=== PATIENT | female | born 1960 | race Caucasian/White ===

== ENCOUNTER 2017-10-20 11:17 | Outpatient (REF) | payer MEDICAID, SELFPAY ==
[2017-10-20 12:44] LABS: ALT 33 U/L (12-78); AST 19 U/L (15-37); Albumin 3.6 g/dL (3.4-5.0); Alkaline Phosphatase 109 U/L (46-116); Anion Gap 7.4 mmol/L (3-11); BUN 12 mg/dL (7-18); Bilirubin, Total 0.4 mg/dL (0.2-1.0); CO2 26.6 mmol/L (21.0-32.0); CREATININE 0.73 mg/dL (0.55-1.02); Calcium 8.6 mg/dL (8.5-10.1); Chloride 105 mmol/L (98-107); Cholesterol 233 mg/dL (50-200); Glucose 108 mg/dL (70-100); HDL Cholesterol 53 mg/dL (40-60); LDL CHOLESTEROL 160 mg/dL (<100); Potassium 4.1 mmol/L (3.5-5.1); Sodium 139 mmol/L (136-145); Total Protein 6.7 g/dL (6.4-8.2); Triglyceride 150 mg/dL (30-150)
== END 2017-10-20 11:37 ==
LOC: NCHCN 11:17
PROVIDERS: PCP Nurse Practitioner; Visit Provider Family Medicine
DX: E04.1 Nontoxic single thyroid nodule (principal); E11.9 Type 2 diabetes mellitus without complications; E66.9 Obesity, unspecified
CPT/HCPCS: 80053; 80061; 83721

== ENCOUNTER 2017-10-27 15:51 | Outpatient (REF) | payer MEDICAID, SELFPAY ==
--- NOTE | 2017-10-27 14:00 | PAPFT_PTH ---
PATIENT: Lis Millan LOC: [facility] U#:[id number] AGE/SX: 57/F ROOM: RE10/27/[address]: Jen Casillas : 1960 BED: DIS: 10/27/2017 SPEC #: [id number] RECD: 10/28/17 12:54 STATUS: CHOCO REJacquelyn #: [id number] DANGELO: 10/27/17 14:[address]: Jen Casillas DEPT: [facility] Cytology RECD BY: Mary Muñoz ENTERED: 10/28/17 12:54 SP TYPE: PAPFT OTHR DR: Leyda Wong Tissues: 1 - CX/ENDOCX FOR PAP SMEARS Procedures: PAP THIN PREP/UVM Screening HPV DNA PROBE Comments: [id number]
== END 2017-10-27 16:11 ==
LOC: NCHCN 15:51
PROVIDERS: PCP Nurse Practitioner; Visit Provider Family Medicine
DX: Z12.4 Encounter for screening for malignant neoplasm of cervix (principal); Z11.51 Encounter for screening for human papillomavirus (HPV)
CPT/HCPCS: 88142; 87624

== ENCOUNTER 2017-11-08 00:50 | Outpatient (CLI) | payer MEDICAID, SELFPAY ==
--- NOTE | 2017-11-08 16:30 | DI.MAMMO_ITS ---
SYMPTOM/DIAGNOSIS: SCREENING, Z12.31 MAMMOGRAMS: Mammograms were interpreted according to the usual protocol including computer analysis with CAD system, tomosynthesis and C view imaging. Comparison with prior examinations. Breast density B. No masses or microcalcifications are seen. There is nothing to suggest malignancy. IMPRESSION: Negative mammogram. Routine screening is recommended. Category 1 , B MQSA ASSESSMENT OF FINDINGS: Negative. Category 1. Patient will receive a letter notifying them of these results. BI-RADS category B. There are scattered areas of fibroglandular density.
== END 2017-11-08 01:10 ==
PROVIDERS: PCP Nurse Practitioner; Visit Provider Family Medicine
DX: Z12.31 Encounter for screening mammogram for malignant neoplasm of breast (principal)
CPT/HCPCS: 77063; 77067

== ENCOUNTER 2018-06-22 10:08 | Outpatient (REF) | payer MEDICAID, SELFPAY ==
[2018-06-23 10:47] LABS: Campylobacter PCR SEE COMMENTS; Salmonella PCR SEE COMMENTS; Shiga Toxin PCR SEE COMMENTS; Shigella/Enteroinvasive Ecoli SEE COMMENTS
[2018-06-24 18:28] LABS: Calprotectin <15.6 mcg/g
== END 2018-06-22 10:28 ==
LOC: LBN 10:08
PROVIDERS: PCP Nurse Practitioner; Visit Provider Nurse Practitioner Family
DX: R19.7 Diarrhea, unspecified (principal)
CPT/HCPCS: 87505; 83993; 87324

== ENCOUNTER 2018-10-26 10:18 | Outpatient (CLI) | payer MEDICAID, SELFPAY ==
[2018-10-26 11:09] LABS: HCT 44.4 % (36.0-46.0); HGB 14.8 g/dL (12.0-15.5); Mean Corp. HGB Concentration 33.3 g/dL (32.0-36.0); Mean Corpuscular Hemoglobin 28.1 pg (27.0-33.0); Mean Corpuscular Volume 84.3 fL (80-95); Platelet Count 349 x1000/uL (130-400); RBC 5.27 m/cumm (4.00-5.20); White Blood Cell Count 6.68 k/cumm (4.4-10.8)
[2018-10-26 12:11] LABS: ALT 40 U/L (14-59); AST 15 U/L (15-37); Albumin 3.9 g/dL (3.4-5.0); Alkaline Phosphatase 99 U/L (46-116); BUN 15 mg/dL (7-18); Bilirubin, Total 0.5 mg/dL (0.2-1.0); CREATININE 0.67 mg/dL (0.55-1.02); Calcium 9.4 mg/dL (8.5-10.1); Chloride 104 mmol/L (98-107); Glucose 131 mg/dL (70-100); Potassium 4.1 mmol/L (3.5-5.1); Sodium 140 mmol/L (136-145); Total Protein 7.1 g/dL (6.4-8.2)
== END 2018-10-26 10:38 ==
PROVIDERS: PCP Family Medicine; Visit Provider Family Medicine
DX: R10.9 Unspecified abdominal pain (principal)
CPT/HCPCS: 36415; 80053; 85027

== ENCOUNTER 2018-11-28 11:51 | Outpatient (CLI) | payer MEDICAID, SELFPAY ==
--- NOTE | 2018-11-28 08:36 | DI.RAD_ITS ---
EXAM: XR KNEE RT 2V AP,LAT INDICATION: right knee pain. COMPARISON: LEFT KNEE 3 VIEW COMPLETE from 04/14/2011 TECHNIQUE: 2D digital imaging was performed. FINDINGS: Two views were obtained. There is marked narrowing of medial tibiofemoral cartilaginous joint space with subchondral sclerosis of the adjacent bones. Prominent hypertrophic spurring at the joint iban ns noted involving all 3 joints of the knee. IMPRESSION: Severe DJD predominantly involving medial tibiofemoral joint.
--- NOTE | 2018-11-28 08:36 | DI.RAD_ITS ---
EXAM: XR KNEE LT 2V AP,LAT INDICATION: left knee pain. COMPARISON: XR KNEE RT 2V AP,LAT from 11/28/2018 TECHNIQUE: 2D digital imaging was performed. FINDINGS: Two views were obtained. There is marked narrowing of the medial tibiofemoral cartilaginous joint sp yuniel. Very prominent hypertrophic spurring at the joint margins noted particularly at the medial tibi ofemoral joint and the patellofemoral joint. Mild subchondral sclerosis of adjacent bones noted at t he medial tibiofemoral joint. IMPRESSION: Severe DJD predominantly involving medial tibiofemoral joint.
--- NOTE | 2018-11-28 08:36 | DI.RAD_ITS ---
EXAM: XR STANDING ALIGNMENT INDICATION: alignment eval with knee pain. COMPARISON: No exams were available for comparison TECHNIQUE: 2D digital imaging was performed. FINDINGS: AP views of both lower extremities were obtained for leg length determination. Mild DJD of the SI lupillo ints and hips noted bilaterally. Severe DJD of the knees predominantly involving medial tibiofemoral joints noted. IMPRESSION:
== END 2018-11-28 12:11 ==
PROVIDERS: PCP Family Medicine; Visit Provider Student in an Organized Health Care Education/Training Program
DX: M25.562 Pain in left knee (principal); M17.0 Bilateral primary osteoarthritis of knee; M25.561 Pain in right knee; M16.0 Bilateral primary osteoarthritis of hip; M53.3 Sacrococcygeal disorders, not elsewhere classified
CPT/HCPCS: 73560; 77073

== ENCOUNTER 2018-12-09 06:07 | Outpatient (CLI) | payer MEDICAID, SELFPAY ==
--- NOTE | 2018-12-09 08:15 | DI.RAD_ITS ---
EXAM: XR CHEST 2V PA LATERAL XR CHEST 2V PA LATERAL CLINICAL HISTORY: COUGH, NON PREDUCTIVE R05 COUGH, NON PREDUCTIVE R05 TECHNIQUE: 2D digital imaging was performed. COMPARISON: CHEST 2 VIEWS PA,LAT from 12/17/2009 FINDINGS: The heart is not enlarged. The lungs are clear and well expanded. No pleural effusion seen. Mediastin al contours appear intact. IMPRESSION: Normal chest
== END 2018-12-09 06:27 ==
PROVIDERS: PCP Family Medicine; Visit Provider Family Medicine
DX: R05 Cough (principal)
CPT/HCPCS: 71046

== ENCOUNTER 2018-12-29 12:48 | Outpatient (CLI) | payer MEDICAID, SELFPAY ==
[2018-12-29 15:16] LABS: HCT 45.3 % (36.0-46.0); HGB 15.2 g/dL (12.0-15.5); Mean Corp. HGB Concentration 33.6 g/dL (32.0-36.0); Mean Corpuscular Hemoglobin 28.2 pg (27.0-33.0); Mean Platelet Volume 9.8 fL (8.0-11.0); Platelet Count 354 x1000/uL (130-400); RBC 5.39 m/cumm (4.00-5.20); RBC Distribution Width 12.9 % (11.7-14.6); White Blood Cell Count 7.06 k/cumm (4.4-10.8)
[2018-12-29 16:05] LABS: Anion Gap 9.8 mmol/L (3-11); BUN 14 mg/dL (7-18); CO2 29.2 mmol/L (21.0-32.0); CREATININE 0.68 mg/dL (0.55-1.02); Calcium 9.4 mg/dL (8.5-10.1); Chloride 103 mmol/L (98-107); Glucose 98 mg/dL (70-100); Potassium 3.8 mmol/L (3.5-5.1); Sodium 142 mmol/L (136-145)
--- NOTE | 2018-12-29 19:10 | W.PREOPHP ---
Date of service: 12/29/18 Assessment and Plan Assessment and plan (1) Osteoarthritis of knee: Status: Chronic Assessment and plan: Bilateral total knee replacements. Details of surgery were discussed with patient as well as risks and pertinent anatomy. All questions were answered. Qualifiers: Osteoarthritis type: primary Laterality: bilateral Qualified Code(s): M17.0 - Bilateral primary osteoarthritis of knee History of Present Illness History of Present Illness Chief Complaint: Bilateral knee pain Narrative: Lis is a 58-year-old female who comes in today for preop history and physical for bilateral knee replacements. She states that she has had this knee pain for several years, but has not sought much for treatment for this. A few years ago she did have a trial of Synvisc injections which she states did not provide any relief, and in fact her left knee had a reaction with severe swelling redness. She ultimately had to have that knee drained in the emergency room. Since then she only uses acetaminophen as needed for her knee pain which she says helped slightly. She works on her feet all day in a bakery, and would like to get some relief from her symptoms. She has significant difficulty ambulating stairs, but she says that she gets the most pain with walking on uneven ground. Recently she had to help with a moving process, and was walking on uneven ground quite a bit during the day. X-rays taken in the office show severe arthritis with even some loose bodies in the knee. After long discussion, it was decided that she would benefit from total knee replacements. Dr. Mcdaniel does offer bilateral knee replacements done the same day, and patient agrees with this plan and is anxious to proceed. Pertinent Surgical Information Patient denies history of hypertension, CVA, [place], angina, asthma, COPD, renal or liver disorders, hepatitis, bleeding disorders, diabetes, immune or thyroid disorders. No complications from anesthesia. Review of Systems Constitutional Constitutional: Denies fever(s) ENT Ears, Nose, Mouth, and Throat: Denies dizziness and Denies sore throat Cardiovascular Cardiovascular: Denies chest pain, Denies palpitations and Denies dyspnea Respiratory Respiratory: Denies cough and Denies dyspnea Gastrointestinal Gastrointestinal: Denies abdominal pain, Denies melena, Denies hematochezia, Denies diarrhea, Denies nausea and Denies vomiting Genitourinary Genitourinary: Denies hematuria and Denies dysuria Neurologic Neurologic: Denies dizziness Endocrine Endocrine: Denies palpitations PFSH Medical History Multiple thyroid nodules (Acute) Surgical History History of gynecologic surgery (Acute) Following childbirth. Hx of cholecystectomy (Chronic) Hx of colonoscopy (Chronic) S/P fine needle biopsy (Acute) Per pt fine needle biopsy for throat nodules. Social History Smoking/Tobacco Use Status: Former Tobacco Use Drug use: Never Current gender identity: female Meds Home Medications and Allergies Home Medications Medication Instructions Recorded Confirmed Type albuterol sulfate [Ventolin HFA] 2 puff INHALATION DIRECTED PRN 11/30/12 12/29/18 History Allergies Allergy/AdvReac Type Severity Reaction Status Date / Time dog dander Allergy Wheezing Verified 12/29/18 13:21 hydrocodone AdvReac Intermediate STOMACH Verified 12/29/18 14:13 PAIN, VOMITING monosodium glutamate AdvReac Intermediate Other (See Verified 12/29/18 13:22 Comment) aspirin AdvReac Mild Nausea Unverified 12/29/18 14:30 Exam HENMT Head: normocephalic and atraumatic General nose exam: no nasal discharge Throat: uvula midline and no uvular edema Other: soft palate rises symmetrically, no erythema Eyes Conjunctivae: conjunctivae normal Sclera: sclerae normal Pupils: PERRL Resp Effort & Inspection: normal respiratory effort Auscultation: clear to auscultation bilaterally and no wheezes Cardio Rate: regular rate Rhythm: regular rhythm Heart Sounds: S1 normal, S2 normal and no murmurs GI Palpation: soft, no hepatosplenomegaly and nontender Auscultation: normal bowel sounds Results Labs Result diagrams: 12/29/18 15:10 12/29/18 15:10 Labs: Laboratory Results - last 24 hr 12/29/18 12/29/18 15:10 15:10 WBC 7.06 RBC 5.39 H Hgb 15.2 Hct 45.3 MCV 84.0 MCH 28.2 MCHC 33.6 RDW 12.9 Plt Count 354 MPV 9.8 Sodium 142 Potassium 3.8 Chloride 103 Carbon Dioxide 29.2 Anion Gap 9.8 BUN 14 Creatinine 0.68 Estimated GFR/1.73 m2 >= 60.00 Glucose 98 Calcium 9.4
== END 2018-12-29 13:08 ==
PROVIDERS: PCP Family Medicine; Visit Provider Student in an Organized Health Care Education/Training Program
DX: M17.11 Unilateral primary osteoarthritis, right knee (principal); M17.12 Unilateral primary osteoarthritis, left knee; J44.9 Chronic obstructive pulmonary disease, unspecified; Z01.812 Encounter for preprocedural laboratory examination
CPT/HCPCS: 80048; 85027; 86850; 86900; 86901; NC

== ENCOUNTER 2019-01-03 05:50 | Inpatient (IN) | payer MEDICAID, SELFPAY ==
[2018-12-29 12:51] VITALS: BP 160/90; PULSE 86; RESP 17; TEMP 36.6; O2SAT 99
[2019-01-03] VITALS (17 sets, daily range): BP systolic 76–130; BP diastolic 31–78; PULSE 60–88; RESP 15–23; TEMP 36.1–37.4; O2SAT 91–99
[2019-01-03] MEDS: Acetaminophen 500 MG TAB 1000 MG PO ×3 (06:34→19:16)
[2019-01-03] MEDS: Celecoxib 200 MG CAP 400 MG PO (06:34)
[2019-01-03] MEDS: Gabapentin 300 MG CAP PO ×2 (06:34→21:19)
[2019-01-03] MEDS: Lactated Ringers 1,000 ML 80 ML IV ×3 (06:40→12:26)
[2019-01-03] MEDS: Midazolam 2 MG/2 ML VIAL (07:25)
[2019-01-03] MEDS: Bupivacaine 0.25% Pres-Free 30 ML VIAL ×2 (07:25→10:30)
[2019-01-03] MEDS: ceFAZolin 2 GM/50 ML BAG IVPB (07:50)
[2019-01-03] MEDS: Normal Saline 20 ML VIAL (10:30)
[2019-01-03] MEDS: Ketorolac 30 MG/ML VIAL (10:30)
--- NOTE | 2019-01-03 13:47 | PT.INIE ---
Date of service: 01/03/19 Time of Service: 13:47 PT Notes Physical Therapy Inpatient Initial Evaluation Date: 01/03/2019 Referring Doctor: PT Orders: PT CONSULT: S/P B TKA Precautions: Fall. Standard. WBAT on B LE. Patient Profile/Admitting Diagnosis: Patient is seen she is a 58-year-old female patient with bilateral knee osteoarthritis S/P bilateral total knee arthroplasty on POD 0. PMHX: Medical History Multiple thyroid nodules (Acute) Surgical History History of gynecologic surgery (Acute) Following childbirth Hx of cholecystectomy (Chronic) Hx of colonoscopy (Chronic) S/P fine needle biopsy (Acute) Per pt fine needle biopsy for throat nodules. Social History/Home Situation: Lives with in a log cabin with 1 step to enter with rail on the R going up. I with all aspects of ADLs prior to surgery. [place]. Equipment Owned/DME: None. Subjective: Patient reports mild tenderness on her L knee with movement. She states her feet are still a little numb. She denies dizziness, headache, chest pain throughout PT evaluation. She did not report any instability during ambulation activity. She said she can feel her knee snap on both sides when she did the bilateral quadriceps setting in supine, there was no pain associated with the snapping. Objective: General Observation: Patient seen rsing in bed. Bilateral cryocuffs on B knees. TAMIR wraps to B knees. Patient does not appear to be in distress. present during PT evaluation. Mental Status: Alert and oriented x4 Pain: 1/10 pain on left knee with movement Vital Signs: WNL at time of evaluation ROM: Right Upper Extremity: Shoulder Flexion WFL. Shoulder abduction WFL. Elbow flexion WFL. Wrist flexion WFL. Opening and closing of hand WFL. Left Upper Extremity: Shoulder Flexion WFL. Shoulder abduction WFL. Elbow flexion WFL. Wrist flexion WFL. Opening and closing of hand WFL. Right Lower Extremity: Hip flexion WFL. Hip abduction WFL. Knee flexion 0-90 degrees with active ROM limited by TAMIR wraps. Knee extension -18 degrees. Ankle dorsiflexion WFL. Ankle plantarflexion WFL. Left Lower Extremity: Hip flexion WFL. Hip abduction WFL. Knee flexion WFL 0-100 degrees with active ROM limited by TAMIR wraps. Knee extension -21 degrees. Ankle dorsiflexion WFL. Ankle plantarflexion WFL. Strength: Right Upper Extremity: Shoulder flexors 5/5. Shoulder abductors 5/5. Elbow flexors 5/5. Elbow extensors 5/5. Edger Machine Helper strong. Left Upper Extremity: Shoulder flexors 5/5. Shoulder abductors 5/5. Elbow flexors 5/5. Elbow extensors 5/5. Edger Machine Helper strong. Right Lower Extremity: Hip flexors 4/5. Hip abductors 4/5. Knee flexors 3-/5. Knee extensors 3-/5. Ankle dorsiflexors 5/5. Ankle plantarflexors 5/5. Left Lower Extremity:Hip flexors 4/5. Hip abductors 4/5. Knee flexors 3-/5. Knee extensors 3-/5. Ankle dorsiflexors 5/5. Ankle plantarflexors 5/5. Sensation: Diminished on B feet as to pain and pressure on bilateral lower extremities due to post-anesthesia effect. This is Bed Mobility/Transfers: Rolling SBA Supine to sit SBA Sit to supine SBA Sit to stand minimal assist Stand to sit CGA Bed to chair CGA Chair to bed CGA Gait: Patient was able to tolerate 10 feet forward and 10 feet backward of in-room ambulation using FWW with CGA of 2 showing slowed adri, decreased step height/length without complaints of dizziness, headache, nor nausea. Patient did not report any instability on B knees during activity. B LE in good alignment during walking. Balance: Static Sitting: Normal Dynamic Sitting: Normal Static Standing: Fair Dynamic Standing: Fair Special Tests: Mobility Limitations Standardized Measure [facility] AM-PAC 6 clicks Basic Mobility Inpatient Short Form: Raw Score: 18 CMS Score: 47 % deficit Informed Consent/Education: Patient instructed in purpose of PT consult and plan of care. Patient was also instructed about doing ankle pumps, gluteal setting, and quadriceps setting to be done every hour for 10 reps. Assessment: Patient is seen she is a 58-year-old female patient with bilateral knee osteoarthritis S/P bilateral total knee arthroplasty on POD 0. 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 She has a good prognosis for regaining prior level of function. is a very good support for her. Felisa is alos motivated to return to her prior mobility level. Patient presents with clinical signs and symptoms consistent with current/admitting diagnoses that have resulted to mobility limitations, gait instability, generalized weakness, and impairment of motor control as demonstrated by the following impairment level findings: 1. Decreased strength to knee major muscle groups 2. Impaired standing balance 3. Impaired activity tolerance 4. Limitation of joint range of motion in B knees Impairments are contributing to the following functional limitations: 1. Dependent bed mobility skills 2. Increased dependence with transfers 3. Inability to safely ambulate without assistive device and physical assistance 4. Increase completion time for mobility ADL performance 5. Increased fall risk 6. Inability to negotiate steps alone safely Patient is assessed as a 74225 moderate complexity based on the following: History: Patient is a 58-year-old female with past medical history as listed above with bilateral knee osteoarthritis S/P bilateral total knee arthroplasty on POD 0. Examination: Demonstrable impairment in strength, balance, and range of motion with underlying impairments and functional limitations as documented above Presentation:Evolving Decision Makin moderate complexity Goals: Goals X1 week 1. Supine-Sit independent 2. Sit-Supine independent 3. Sit-Stand independent 4. Stand-Sit independent 5. Bed-Chair independent 6. Chair-Bed independent 7. Independent gait on level surface with use of least restrictive device for at least 300 feet without report of pain nor dyspnea 8. Independent stair negotiation while holding onto bilateral rails for at least 3 steps without report of pain nor dyspnea 9. Independent with home exercise program 10. Good static and dynamic standing balance/tolerance Plan of Care/Treatment Plan: 1-2x/day, 7 days/week x 1 week. Plan of care has been reviewed with the [employer]GER providing the service under Physical Therapy direction. Initiate Physical Therapy intervention for strengthening, bed mobility, transfers, gait, stairs, balance training, use of assistive device. DISCHARGE RECOMMENDATIONS: May benefit from skilled physical therapy services according to orthopedic surgeon's timeline recommendations. Patient will be educated and trained on home exercise program per TKA exercise protocol in preparation for outpatient physical therapy services. TREATMENT CODE/TIME: 83829 X 37 minutes beginning at 13:47 pm. Thank you very much for this referral. Evon Pal PT, DPT, CLT [facility]
[2019-01-03] MEDS: ceFAZolin 1 GM/50 ML BAG IVPB ×2 (14:34→21:18)
--- NOTE | 2019-01-03 14:48 | NUR.NOTE ---
Nursing Note: 1241: pt arrives to room 206 via her own bed from pacu. pt alert/oriented x 3, patent IV with LR @ 80 cc/hr, pt +pp's bilaterally, cryo cuff in place x 2, oriented to call pierce and tv. continue to monitor.
[2019-01-03] MEDS: oxyCODONE 5 MG TAB PO ×3 (16:04→23:00)
[2019-01-03] MEDS: Celecoxib 200 MG CAP PO (19:16)
[2019-01-03] MEDS: Rivaroxaban 10 MG TABLET PO (19:16)
--- NOTE | 2019-01-03 22:05 | ROE_ITS ---
Date of service: 01/03/19 Time of Service: 11:05 Operative Note Operative Note DATE OF PROCEDURE: 01/03/19 PRE-OP DIAGNOSIS: Bilateral Knee Osteoarthritis POST-OP DIAGNOSIS: same PROCEDURE: Bilateral Total Knee Replacement SURGEON: Jacek Castanon BULL GANG WORKER: Ashwin Sneed ANESTHESIA: regional and spinal ESTIMATED BLOOD LOSS: 200 PATHOLOGY: none sent TOURNIQUET TIME: 30 COMPLICATIONS: None Patient was transported to: PACU Patient's condition: stable Implants: RIGHT 1. Depuy Attune Posterior Stabilized Femoral Component, Size 4 2. Depuy Attune Fixed Platform Tibial Component, Size 3 3. Depuy Attune 4x5mm Fixed, Stabilized Poly 4. Depuy Attune Patellar Component, Size 35mm LEFT 1. Depuy Attune Posterior Stabilized Femoral Component, Size 5 Narrow 2. Depuy Attune Fixed Platform Tibial Component, Size 3 3. Depuy Attune 5x7mm Fixed, Stabilized Poly 4. Depuy Attune Patellar Component, Size 32mm Indications: I have seen Lis in clinic for symptoms of bilateral knee arthritis, confirmed with radiographic findings. Lis has exhausted nonoperative methods and was having significant limitations in daily function and desired better function and less pain. I discussed the technical details of a knee replacement. I explained the risks of the procedure to include, but not limited to, bleeding, infection, pain, stiffness, fracture, damage to nerves and vessels, damage to muscles and tendons, loosening, need for repeat procedure, blood clot and cardiopulmonary demise. Despite these risks, Lis elected to proceed. Findings: There was significant signs of arthritis throughout the knee. Procedure Description: Lis was greeted in the preoperative holding area where the correct side was identified and marked. The consent was reviewed with the patient and signed. The history and physical was updated. All questions were answered. Preoperative mediacations were administered: Acetaminophen 1000mg, Celebrex 400mg, and Gabapentin 300mg. An adductor canal block was then administered by the anesthesia team in the PACU to both knees. Lis was taken back to the operating room. A spinal anesthestic was then administered. The patient was placed into the supine position on the operating room table. A nonsterile tourniquet was placed high onto the leg but only used for cementing. Posts were placed for positioning d uring the procedure. All bony prominences were well padded. Prophylactic antibiotics in the form of Cefazolin were administered. 1g of Tranxemic Acid was given intravenously within 30 minutes of incision. Both legs were then prepped with Chloraprep and draped in a standard fashion with impervious stockinette and a bilateral knee drape. A second prep with Chloraprep was performed prior to application of Iodine impregnated skin protection on the right knee. A timeout to confirm correct identity, side and site, procedure, allergies, anesthesia, and medical concerns was performed. RIGHT KNEE With the knee in some flexion, a midline incision was made overlying the knee. Full thickness skin flaps were raised once the extensor mechanism was encountered. These were raised medially and laterally. Any bleeding was controlled with electrocautery. Once the extensor mechanism was fully exposed, a medial parapatellar arthrotomy was performed in a flexed position. All bleeding from the arthrotomy and the geniculate arteries was coagulated. A medial subperiosteal peel was performed with electrocautery to the midcoronal plane. Due to the significant varus d eformity the entire medial tibial plateau was exposed. The fat pad was removed while keeping the patellar tendon protected. The anterior distal femur synovium was removed for later visualization. The ACL and PCL were resected and the anterior horn of the lateral meniscus was transected. The knee was then flexed with the patella everted. Large osteophytes from the tibia were removed. Large osteophytes from the femur were removed. Using a step drill, and based on preoperative templating, the femoral canal was entered. This was done with a step drill without any difficulty. The intrame dullary distal femoral cut guide was inserted, set to a 5 degree valgus cut and 9mm cut thickness. There was some hypoplasia of the lateral femoral condyle and any remnant cartilage of the medial femoral condyle was removed for appropriate thickness. The distal femoral cut guide was then held in position and pinned. With the soft tissues protected, the distal cut was performed. This was passed over a few times to ensure a planar cut. I then turned attention to the tibia. The extramedullary guide was placed onto the leg. The distal aspect was slid medial to adjust for position of center of ankle and stay in line with shaft of the tibia. Approximately 3-5 degrees of posterior slope was kept in the proximal cutting guide. The center of the guide was aligned with the PCL. The stylus was used to assess cut thickness. The medial side, most involved side, was set for a 4mm cut. This was then held in position and pinned into place with 2 additional pins and a cross pin for stability. The medial and lateral collateral ligaments were protected and the cut was performed. With this completed, it was assessed and noted to be of appropriate dimensions. The guide was removed. A spacer block was inserted and the knee was brought into extension. The 5mm spacer block provided full extension, without hyperextension and with stability of both the medial and lateral collateral ligaments was assessed. The pins from the femur and the tibia were then removed. The distal femur was then sized. The anterior stylus was placed onto the lateral ridge of the anterior femur. This indicated a size 4 femur. The external rotation of the guide was adjusted to 3 degrees to match the epicondylar axis, perpendicular to [place]?s line. The 4-in-1 cutting guide was the placed. The posterior medial femur cut was evaluated and appeared of good thickness. The spacer block was inserted underneath the cutting guide and stability was confirmed in 90 degrees of flexion. An jena wing was used to confirm appropriate position of the anterior cut to avoid notching. This cutting guide was ensured to be flush on the cut surface and then pinned into place with headed pins. While protecting the soft tissues, quad tendon, and collateral ligaments, the anterior and posterior cuts were performed with a saw. The central two pins were removed and the posterior and anterior chamfers were cut next. The notch-cutting guide was placed. This was pinned to lateralize the femoral component as much as possible while keeping it flush on the cut surface. This was then pinned into position. A reciprocating saw was used to make the notch cut. A rasp smoothed the cut surfaces. A trial posterior stabilized femoral component was then inserted, impacted down to the cut surfaces, and the lug holes were drilled. A provisional trial tibial component was placed and the knee was brought through range of motion. There was noted to be excellent extension and flexion. There was no significant instability. The patella was tracking without thumbs. The tibial cut surface was fully exposed. The medial and lateral menisci were removed. The tibia was then sized as a 3. The tibia had been previously marked during trialing to correspond to the center of the tibial component to help with rotation. The trial was aligned to this ashwin, approximately rotated to the medial 1/3rd of the tibial tubercle. The trial was pinned into place. The tibia was prepared with a reamer and a keel punch. The knee was then brought into extension and the patella was measured as 25mm. Using the patellar clamp and cut guide, this was resected to a flat surface with at least 13mm of thickness remaining. The size 35 patella fit the best. This was oriented and then clamped into position. The lugs were drilled. The trial components were removed. The final components, except for the polyethylene were opened on the back table. The periosteal and capsular tissues, especially posteriorly, around the knee were then systematically injected with a periarticular cocktail consisting of 50cc 0.25% Marcaine, 30mg Ketorolac, 20cc of Exparal and 50cc of injectable saline. The tourniquet was t hen inflated to 275mmHg. The knee was thoroughly irrigated with a pulse lavage and dried. On the back table, with the implants opened, the cement was mixed. 2 batches of antibiotic laden cement were prepared with vacuum assistance. After the cement was ready a small amount was placed on to the back side of the tibial component at the keel. A small amount was placed onto the posterior flange of the femur. Cement was manual pressurized and impregnated into the cut surface of the tibia. The tibial component was then inserted into the cut surface and impacted into position. Excess cement was removed and the component was reimpacted. Again, excess cement was removed and our attention was then turned to the femur. The femoral cut surface was once again dried and cement was manually impacted into the cut surface. The femoral component was lined with the lug holes and impacted. Excess cement was removed. It was ensured to be down against the cut surface. The trial polyethylene was then inserted and the leg was brought out into full extension for the duration of the cement curing process, approximately 15min. Cement was lastly manually impacted into the cut surface of the patella and the patellar button was clamped into position and held. During this process attention was turned to the gutters of the knee and for all interfaces for any excess cement. While the cement was hardening, the knee was irrigated with Irrisept chlorhexadine solution. This was allowed to sit in the knee for 3 minutes. After the cement had finally cured, approximately 15min, the clamp was removed from the patella and the knee was taken through range of motion. A size 5mm polyethylene component provided the best range of motion and stability with less than 2mm gapping with medial and lateral stress and full extension without significant hyperextension. The patella was tracking with a no-thumbs technique. The trial poly was removed and once again the knee was checked for any loose, excess, or errant cement. The poly component was then inserted and impacted into position after cleaning and drying the tibial tray. The capsule was then reapproximated with a No. 1 Vicryl at multiple locations. The capsule was finally closed with a No. 2 Stratafix, barbed suture. The tourniquet was then released and the arthrotomy appeared watertight without significant bleeding. The second dosing of 1g TXA was started. While Ashwin Sneed PA-C was closing the right knee under my guidance, the left knee was prepared. Deep tissues were then reapproximated with 0 Vicryl and 2-0 Vicryl. The skin was closed with a running 3-0 Monocryl in a subcuticular fashion. This was reinforced with skin glue. Left Knee Once the extensor mechanism was fully exposed, a medial parapatellar arthrotomy was performed in a flexed position. All bleeding from the arthrotomy and the geniculate arteries was coagulated. A medial subperiosteal peel was performed with electrocautery to the midcoronal plane. Due to the significant varus deformity the entire medial tibial plateau was exposed. The fat pad was removed while keeping the patellar tendon protected. The anterior distal femur synovium was removed for later visualization. The ACL and PCL were resected and the anterior horn of the lateral meniscus was transected. The knee was then flexed with the patella everted. Large osteophytes from the tibia were removed. Large osteophytes from the femur were removed. Using a step drill, and based on preoperative templating, the femoral canal was entered. This was done with a step drill without any difficulty. The intramedullary distal femoral cut guide was inserted, set to a 5 degree valgus cut and 10mm cut thickness. There was some hypoplasia of the lateral femoral condyle and any remnant cartilage of the medial femoral condyle was removed for appropriate thickness. The distal femoral cut guide was then held in position and pinned. With the soft tissues protected, the distal cut was performed. This was passed over a few times to ensure a planar cut. I then turned attention to the tibia. The extramedullary guide was placed onto the leg. The distal aspect was slid medial to adjust for position of center of ankle and stay in line with shaft of the tibia. Approximately 3-5 degrees of posterior slope was kept in the proxi mal cutting guide. The center of the guide was aligned with the PCL. The stylus was used to assess cut thickness. The medial side, most involved side, was set for a 4mm cut. This was then held in position and pinned into place with 2 additional pins and a cross pin for stability. The medial and lateral collateral ligaments were protected and the cut was performed. With this completed, it was assessed and noted to be of appropriate dimensions. The guide was removed. A spacer block was inserted and the knee was brought into extension. The 5mm spacer block provided full extension, without hyperextension and with stability of both the medial and lateral collateral ligaments was assessed. The pins from the femur and the tibia were then removed. The distal femur was then sized. The anterior stylus was placed onto the lateral ridge of the anterior femur. This indicated a size 5 narrow femur. The external rotation of the guide was adjusted to 3 degrees to match the epicondylar axis, perpendicular to [place]?s line. The 4-in-1 cutting guide was the placed. The posterior medial femur cut was evaluated and appeared of good thickness. The spacer block was inserted underneath the cutting guide and stability was confirmed in 90 degrees of flexion. An jena wing was used to confirm appropriate position of the anterior cut to avoid notching. This cutting guide was ensured to be flush on the cut surface and then pinned into place with headed pins. While protecting the soft tissues, quad tendon, and collateral ligaments, the anterior and posterior cuts were performed with a saw. The central two pins were removed and the posterior and anterior chamfers were cut next. The notch-cutting guide was placed. This was pinned to lateralize the femoral component as much as possible while keeping it flush on the cut surface. This was then pinned into position. A reciprocating saw was used to make the notch cut. A rasp smoothed the cut surfaces. A trial posterior stabilized femoral component was then inserted, impacted down to the cut surfaces, and the lug holes were drilled. A provisional trial tibial component was placed and the knee was brought through range of motion. There was noted to be excellent extension and flexion. There was no significant instability. The patella was tracking without thumbs. The tibial cut surface was fully exposed. The medial and lateral menisci were removed. The tibia was then sized as a 3. The tibia had been previously marked during trialing to correspond to the center of the tibial component to help with rotation. The trial was aligned to this ashwin, approximately rotated to the medial 1/3rd of the tibial tubercle. The trial was pinned into place. The tibia was prepared with a reamer and a keel punch. The knee was then brought into extension and the patella was measured as 25mm. Using the patellar clamp and cut guide, this was resected to a flat surface with at least 13mm of thickness remaining. The size 35 patella fit the best. This was oriented and then clamped into position. The lugs were drilled. The trial components were removed. The final components, except for the polyethylene were opened on the back table. The periosteal and capsular tissues, especially posteriorly, around the knee were then systematically injected with 1/2 of the periarticular cocktail consisting of 50cc 0.25% Marcaine, 30mg Ketorolac, 20cc of Exparal and 50cc of injectable saline. The tourniquet was then inflated to 275mmHg. The knee was thoroughly irrigated with a pulse lavage and dried. On the back table, with the implants opened, the cement was mixed. 2 batches of antibiotic laden cement were prepared with vacuum assistance. After the cement was ready a small amount was placed on to the back side of the tibial component at the keel. A small amount was placed onto the posterior flange of the femur. Cement was manual pressurized and impregnated into the cut surface of the tibia. The tibial component was then inserted into the cut surface and impacted into position. Excess cement was removed and the component was reimpacted. Again, excess cement was removed and our attention was then turned to the femur. The femoral cut surface was once again dried and cement was manually impacted into the cut surface. The femoral component was lined with the lug holes and impacted. Excess cement was removed. It was ensured to be down against the cut surface. The trial polyethylene was then inserted and the leg was brought out into full extension for the duration of the cement curing process, approximately 15min. Cement was lastly manually impacted into the cut surface of the patella and the patellar button was clamped into position and held. During this process attention was turned to the gutters of the knee and for all interfaces for any excess cement. While the cement was hardening, the knee was irrigated with Irrisept chlorhexadine solution. This was allowed to sit in the knee for 3 minutes. After the cement had finally cured, approximately 15min, the clamp was removed from the patella and the knee was taken through range of motion. A size 7mm polyethylene component provided the best range of motion and stability with less than 2mm gapping with medial and lateral stress and full extension without significant hyperextension. The patella was tracking with a no-thumbs technique. The trial poly was removed and once again the knee was checked for any loose, excess, or errant cement. The poly component was then inserted and impacted into position after cleaning and drying the tibial tray. The capsule was then reapproximated with a No. 1 Vicryl at multiple locations. The capsule was finally closed with a No. 2 Stratafix, barbed suture. The tourniquet was then released and the arthrotomy appeared watertight without significant bleeding. The second dosing of 1g TXA was started. While Ashwin Sneed PA-C was closing the right knee under my guidance, the left knee was prepared. Deep tissues were then reapproximated with 0 Vicryl and 2-0 Vicryl. The skin was closed with a running 3-0 Monocryl in a subcuticular fashion. This was reinforced with skin glue. A Mepilex silver dressing was applied along with a [id number] TAMIR wrap to both knees. A CryoCuff was applied. Lis was transferred to the hospital bed without difficulty an suffering no apparent complication. Lis has a good prognosis. Physical therapy will start today and without restrictions, weight-bearing as tolerated. Rivaroxaban 10mg daily for blood clot prevention.
[2019-01-04] MEDS: Lactated Ringers 1,000 ML 80 ML IV ×2 (00:39→14:04)
[2019-01-04] MEDS: oxyCODONE 5 MG TAB PO ×6 (03:21→23:34)
[2019-01-04 04:28] VITALS: BP 118/82; PULSE 77; RESP 18; TEMP 36.2; O2SAT 93
[2019-01-04] MEDS: ceFAZolin 1 GM/50 ML BAG IVPB (05:44)
[2019-01-04 07:00] LABS: HGB 11.4 g/dL (12.0-15.5); Mean Corp. HGB Concentration 32.6 g/dL (32.0-36.0); Mean Corpuscular Hemoglobin 27.9 pg (27.0-33.0); Mean Corpuscular Volume 85.6 fL (80-95); Mean Platelet Volume 10.4 fL (8.0-11.0); Platelet Count 263 x1000/uL (130-400); RBC 4.09 m/cumm (4.00-5.20); RBC Distribution Width 12.8 % (11.7-14.6); White Blood Cell Count 7.12 k/cumm (4.4-10.8)
[2019-01-04 07:10] VITALS: BP 117/70; PULSE 78; RESP 17; TEMP 36.7; O2SAT 96
[2019-01-04 07:19] LABS: Anion Gap 6.7 mmol/L (3-11); BUN 10 mg/dL (7-18); CO2 26.3 mmol/L (21.0-32.0); CREATININE 0.76 mg/dL (0.55-1.02); Chloride 103 mmol/L (98-107); Glucose 224 mg/dL (74-106); Potassium 3.9 mmol/L (3.5-5.1); Sodium 136 mmol/L (136-145)
[2019-01-04] MEDS: Celecoxib 200 MG CAP PO ×2 (07:33→20:03)
[2019-01-04] MEDS: Acetaminophen 500 MG TAB 1000 MG PO ×3 (07:34→20:02)
[2019-01-04] MEDS: Dexamethasone 4 MG TAB PO (07:35)
[2019-01-04] MEDS: Pantoprazole 40 MG TABCR PO (07:35)
--- NOTE | 2019-01-04 09:33 | NUR.NOTE ---
Nursing Note: 0900. pt working with PT and became dizzy, diaphoretic and nauseous. Pt's VS within normal limits. Patient sat in her recliner and her symptoms subsided over a few minutes
--- NOTE | 2019-01-04 09:38 | INITIAL_ITS ---
Care Management Initial Assess REASON FOR HOSPITALIZATION:: Bilateral Knee OA PAST MEDICAL HISTORY/PAST SURGICAL HISTORY:: Multiple thyroid nodules, gynecologic sugery following childbirth, cholecystectomy, colonoscopy, fine needle biopsy PREVIOUS FUNCTIONAL STATUS/SOCIAL/FAMILY SUPPORTS:: Lis resides with her , Luis in a log cabin in [place], [place]. 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 Luis and Lis have plans to go south in [place] of [place]. CURRENT FUNCTIONAL STATUS:: Lis is sitting up in her chair, she engages well with this technical publications writer and is forthcoming with information. Lis reports that she was working well with PT and had been up multiple times, she states after receiving a new oral medication she became dizzy and nauseous. She reports anticipating staying another night and discharging home tomorrow. Lis anticipates she will have new orders for PT/OT upon discharge and is interested in a FWW through [employer]. ADVANCE DIRECTIVES:: None on file at [facility]. Has patient been provided with information about the portal?: Yes Did the patient sign up for the portal?: No CODE STATUS:: Full Code INSURANCE COVERAGE / FINANCIAL ISSUES:: Medicaid CURRENT HOME/COMMUNITY SERVICES/EQUIPMENT:: No current services or equipment. PRIMARY CARE PHYSICIAN:: Jen Casillas POTENTIAL DISCHARGE NEEDS:: Follow up appointment with Dr. Castanon, [facility] orders, new FWW. PATIENT/FAMILY EDUCATION NEEDS:: Review of discharge instructions, DME options and insurance limitiations. Ask Me Three review to ensure patient understa nding of self care needs upon discharge. ANTICIPATED BARRIERS TO DISCHARGE:: None identified. TRANSPORTATION:: Via private vehicle with her . PLAN:: Lis will continue to be closely monitored and evaluted by PT/OT. Anticipate she will return home with new home health orders, follow up with Dr. Castanon and have a new FWW for mobility support in home setting. She will transport via private vehicle with her , Luis.
[2019-01-04 11:00] VITALS: BP 133/81; PULSE 81; RESP 18; TEMP 36.8; O2SAT 97
--- NOTE | 2019-01-04 12:04 | PT.INTREAT ---
Date of service: 01/04/19 Time of Service: 12:04 PT Notes Inpatient Physical Therapy Treatment Note [facility] Date: 01/04/2019 PRECAUTIONS: Fall, WBAT B SUBJECTIVE: Lis states that she is starting to feel a little bit better, and is agreeable to participating in PT. She reports that she does not feel comfortable returning home today, but feels that she will be ready tomorrow. OBJECTIVE: PAIN: Patient complained of lateral knee pain L>R, bilaterally with ther ex and gait training BED MOBILITY/TRANSFERS Supine-sit: I with HOB flat Sit-supine: I with HOB flat Sit-stand: SBA Stand-sit: SBA GAIT Assistive Device: FWW Weight bearing: WBAT B Assist: CGA in a.m.; SBA in p.m. Distance: 5' + 25' in a.m.; 10' + 50' in p.m. Deviation: Seated rest due to nausea and lightheadedness, increased pain THEREX: Patient completed a lower extremity strengthening and stabilization program, in a supine position, as per flow sheet. Patient requires assist with SLR on L. She ends with cryocuff to bilateral knees. TOILETING: Patient toileted with SBA for transfers ASSESSMENT: Patient tolerated session with complaints of increased bilateral knee pain, L>R. Patient was able to tolerate a progression in gait distance with FWW support and SBA. Patient would benefit from continued gait and transfer training as well as strengthening for improved mobility and improved activity tolerance. PLAN: Continue with PTs POC TREATMENT CODE/TIME: Session 1: 45 minutes; [id number] x2, [id number] Session 2: 40 minutes; [id number] x2, [id number]
[2019-01-04] MEDS: Normal Saline Flush 10 ML SYR IV ×2 (14:04→17:41)
--- NOTE | 2019-01-04 15:05 | CHAPLAIN ---
Lis told me out her bi-lateral knee surgery and said that things went well and she's been up and walking around already. 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
[2019-01-04] MEDS: Polyethylene Glycol 3350 17 GM PACKET PO (15:37)
[2019-01-04] MEDS: Docusate Sodium 100 MG CAP PO (15:38)
--- NOTE | 2019-01-04 18:20 | NUR.NOTE ---
Nursing Note: 1730-Glen wraps to bilateral leg removed at this time
[2019-01-04 19:15] VITALS: BP 120/71; PULSE 85; RESP 16; TEMP 36.8; O2SAT 95
[2019-01-04] MEDS: Gabapentin 300 MG CAP PO (20:02)
[2019-01-04] MEDS: Rivaroxaban 10 MG TABLET PO (20:03)
--- NOTE | 2019-01-04 20:22 | W.PM.PROGNOT ---
Date of Service Date of service: 01/04/19 Time of Service: 16:22 Assessment and Plan Assessment and plan (1) Osteoarthritis of knees, bilateral: Status: Acute Assessment and plan: Lis is POD#1 s/p bilateral TKA. She is doing well. She is mobilizing with minimal assistance and has had good pain ctonrol. No notable complications. Some drop in hemoglobin but no need for transfusion. Continue Rivaroxaban for DVT prophylaxis. WBAT with assistance. Qualifiers: Osteoarthritis type: primary Qualified Code(s): M17.0 - Bilateral primary osteoarthritis of knee Subjective Subjective Interval history since last seen: Lis reports to be doing well. She denies any significant pain. She has been able to abmulate with nursing and PT. Her smith catheter was removed and she is voiding spontaneously. No F/C. No N/V. Exam Narrative Exam Narrative: BLE dressings c/d/i. Able to SLR bilaterally. Feet are WWP. Objective Objective Clinical Data: Abnormal lab results 01/04/19 01/04/19 Range/Units 06:30 06:30 Hgb 11.4 L (12.0-15.5) g/dL Hct 35.0 L (36.0-46.0) % Glucose 224 H (74-106) mg/dL Calcium 8.0 L (8.5-10.1) mg/dL Vital Signs Temperature 36.8 C 01/04/19 11:00 Temperature Source Tympanic 01/04/19 11:00 Pulse 81 01/04/19 11:00 Pulse Rhythm Regular 01/04/19 15:39 Respiratory Rate 18 01/04/19 11:00 Respiratory Effort 01/04/19 15:39 Respiratory Depth Normal 01/04/19 15:39 Respiratory Pattern Normal 01/04/19 15:39 Blood Pressure 133/81 01/04/19 11:00 Pulse Oximetry 97 01/04/19 11:00 Respiratory End-tidal CO2 28 01/03/19 12:35 Oxygen Delivery Method Room Air 01/04/19 11:00 Oxygen Flow Rate 0 01/04/19 11:00 Pain Level 4 01/04/19 20:02 Intake & Output 01/03/19 01/04/19 01/04/19 23:59 11:59 23:59 Intake Total 2019 2294.000 / 3765.333 1471.333 / 3765.333 Output Total 775 / 2325 320 / 2220 1900 / 2220 Balance 1245 / 865 1974.000 / 1545.333 -428.667 / 1545.333 Intake: IV 1100 / 2270 1574.000 / 2325.333 751.333 / 2325.333 Oral 920 / 920 720 / 1440 720 / 1440 Output: Urine 775 / 2125 320 / 2220 1900 / 2220 Other: Urine Color Yellow Light Chrissie Yellow Urine Appearance Clear Clear Clear Urine Odor Normal Comment Patient refused smith D/C at this time, states she would liked it D/C'd in AM Stool Size Large Small Stool Characteristics Soft Soft Brown Emesis Description None Voiding Methods Toilet Laboratory Results WBC 7.12 k/cumm (4.4-10.8) 01/04/19 06:30 RBC 4.09 m/cumm (4.00-5.20) 01/04/19 06:30 Hgb 11.4 g/dL (12.0-15.5) L 01/04/19 06:30 Hct 35.0 % (36.0-46.0) L 01/04/19 06:30 MCV 85.6 fL (80-95) 01/04/19 06:30 MCH 27.9 pg (27.0-33.0) 01/04/19 06:30 MCHC 32.6 g/dL (32.0-36.0) 01/04/19 06:30 RDW 12.8 % (11.7-14.6) 01/04/19 06:30 Plt Count 263 x1000/uL (130-400) 01/04/19 06:30 MPV 10.4 fL (8.0-11.0) 01/04/19 06:30 Sodium 136 mmol/L (136-145) 01/04/19 06:30 Potassium 3.9 mmol/L (3.5-5.1) 01/04/19 06:30 Chloride 103 mmol/L (98-107) 01/04/19 06:30 Carbon Dioxide 26.3 mmol/L (21.0-32.0) 01/04/19 06:30 Anion Gap 6.7 mmol/L (3-11) 01/04/19 06:30 BUN 10 mg/dL (7-18) 01/04/19 06:30 Creatinine 0.76 mg/dL (0.55-1.02) 01/04/19 06:30 Estimated GFR/1.73 m2 >= 60.00 (mL/min/1.73m2) 01/04/19 06:30 Glucose 224 mg/dL (74-106) H 01/04/19 06:30 Calcium 8.0 mg/dL (8.5-10.1) L 01/04/19 06:30
[2019-01-04 23:41] VITALS: BP 93/52; PULSE 80; RESP 17; TEMP 36.9; O2SAT 95
[2019-01-05 03:47] VITALS: BP 105/65; PULSE 64; RESP 15; TEMP 36.8; O2SAT 97
[2019-01-05] MEDS: Normal Saline Flush 10 ML SYR IV (07:46)
[2019-01-05] MEDS: Celecoxib 200 MG CAP PO (07:47)
[2019-01-05] MEDS: Acetaminophen 500 MG TAB 1000 MG PO (07:47)
[2019-01-05] MEDS: oxyCODONE 5 MG TAB PO ×2 (07:47→11:31)
[2019-01-05] MEDS: Pantoprazole 40 MG TABCR PO (07:47)
[2019-01-05 08:00] VITALS: BP 109/72; PULSE 75; RESP 17; TEMP 36.5; O2SAT 98
--- NOTE | 2019-01-05 08:16 | DSE_ITS ---
Date of service: 01/05/19 Time of Service: 08:16 DS: Diagnosis Discharge Diagnosis (1) Osteoarthritis of knees, bilateral: Status: Acute Discharge Plan Disposition Patient Disposition: HOME W/HOME HEALTH SERVICE Condition: Good Discharge Details Reason For Visit: HANNAH KNEE OA Admit Date/Time: 01/03/19 05:50 Admit Provider: Jacek Castanon Attending Provider: Jacek Castanon Primary Care Provider: Jen Casillas Hospital Course Hospital Course: Patient was admitted to the medical/surgical floor following the procedure. It was tolerated well without any notable medical, surgical, or anesthetic complications. Mobilization began postoperatively. The smith catheter was removed and voiding spontaneously. Vitals were stable. Physical therapy worked with the patient and was cleared for discharge home. No acute medical issues. Home Meds and New Rx's Prescriptions: New acetaminophen 500 mg tablet 1,000 mg PO Q8H PRN (Reason: pain) Qty: 90 RF: 3 pantoprazole 40 mg tablet,delayed release (DR/EC) 40 mg PO DAILY Qty: 30 RF: 0 gabapentin 300 mg capsule 300 mg PO QHS Qty: 7 RF: 0 oxycodone 5 mg tablet 5 mg PO Q4H Qty: 18 RF: 0 rivaroxaban 10 mg tablet 10 mg PO DAILY Qty: 12 RF: 0 celecoxib 100 mg capsule 100 mg PO BID Qty: 60 RF: 0 Continued albuterol sulfate [Ventolin HFA] 8 GM HFA aerosol inhaler 2 puff inhalation DIRECTED PRNRF: 0 Discharge Instructions Additional Instructions: Dr. Castanon?s Total Knee Discharge Instructions Activity: The most important activity is to walk. You should try to take short walks a few times a day. It is important that when resting you work on keeping the knee straight. Avoid putting a pillow behind the knee as this will encourage flexion. Work on range of motion exercises as provided by Physical Therapy. - Start outpatient physical therapy within 2 weeks. - You should wear the BAO hose on both legs for 2 weeks. You may take breaks and also leave them off at night. Dressing: Keep the surgical dressing in place for at least one week. After the first week it may be removed and replace with light gauze and tape or nothing. It may get wet after 3 days but avoid soaking the dressing. If it gets wet, just lightly pat dry. Medications: - You should take Tylenol and anti-inflammatory Celebrex as your primary pain control medications - You have been prescribed a stronger pain medication Oxycodone for breakthrough pain, take as needed as prescribed. - You have also been prescribed a stomach acid reduction agent Pantoprozole to help reduce stomach acid and reflux. - You will be taking Rivaroxaban 10mg daily for DVT prevention unless instructed otherwise. - If you have constipation you should take Colace or Miralax (both [id number]). It takes most people 3-4 days to have a bowel movement. Follow-up: 2 weeks 1. Encounter Date and Reason I certify that LIS HERNANDEZ was seen by Jacek Castanon MD on 01/05/19 and that I had a [id number] encounter with this patient that meets the physician face to face encounter requirements. 2. Clinical Findings Supporting Skilled Need and Homebound Status I certify that home health services are medically necessary, include either intermittent prison and/or physical/speech therapy, and that this patient is homebound in that absences from the home require considerable and taxing effort and are infrequent or of short duration, or are attributable to the need to receive medical care. [X] (a) Attached documentation from encounter provides clinical findings supporting skilled need and homebound status (including what assistance patient requires to leave the home). The encounter with the patient was in whole, or in part, for the following medical condition, which is the primary reason for home health care: HANNAH KNEE OA Intermediate: Physical Therapy: Lis will require home health PT to address notable weakness and stiffness following bilateral knee replacements. Speech Therapy: Homebound: Lis is unable to leave the home unassisted due to significant weakness and gait abnormalities. 3. Certification and Authentication I certify that I composed the above information based on my clinical judgement relating to this patient's medical condition and, if applicable, clinical findings communicated to me by the NPP or inpatient physician who performed the Home Health Referral. All further orders will be obtained through Dr. Castanon Referrals: Jacek Castanon MD [ [facility] STAFF PHYSICIAN] - Activity:: Activity as Tolerated Equipment/Supplies:: Walker Diet:: As Tolerated Discharge Orders Discharge Orders: Discharge Order (Routine); Ordered 01/05/19 Ordered By: Jacek Castanon DS: Summary Status at Discharge Functional status at discharge: uses cane/walker Overall status at discharge: patient is progressing back to baseline Mental Status: mental status grossly normal Speech and Movement: speech and movement normal Mood: congruent mood Affect: normal affect Exam Psych Mental Status: mental status grossly normal Speech and Movement: speech and movement normal Mood: congruent mood Affect: normal affect DS: Data Vitals/I&O Vitals and I&O: Vital Signs Temperature 36.8 C 01/05/19 03:47 Temperature Source Tympanic 01/05/19 03:47 Pulse 64 01/05/19 03:47 Pulse Rhythm Regular 01/05/19 04:00 Respiratory Rate 15 01/05/19 03:47 Respiratory Effort Non-Labored 01/05/19 04:00 Respiratory Depth Normal 01/05/19 04:00 Respiratory Pattern Normal 01/05/19 04:00 Blood Pressure 105/65 01/05/19 03:47 Pulse Oximetry 97 01/05/19 03:47 Respiratory End-tidal CO2 28 01/03/19 12:35 Oxygen Delivery Method Room Air 01/05/19 03:47 Oxygen Flow Rate 0 01/05/19 03:47 Pain Level 5 01/05/19 07:47 Intake & Output 01/04/19 01/04/19 01/05/19 11:59 23:59 11:59 Intake Total 2294.000 / 4315.333 2021.333 / 4315.333 Output Total 320 / 3070 2750 / 3070 500 / 500 Balance 1974.000 / 1245.333 -728.667 / 1245.333 -500 / -500 Intake: IV 1574.000 / 2325.333 751.333 / 2325.333 Oral / 1989 1270 / 1990 Output: Urine 320 / 3070 2750 / 3070 500 / 500 Other: Urine Color Light Chrissie Yellow Yellow Light Chrissie Urine Appearance Clear Clear Clear Urine Odor Normal Normal Stool Size Small Stool Characteristics Soft Voiding Methods Toilet Toilet [facility] Medical History Multiple thyroid nodules (Acute) Surgical History History of gynecologic surgery (Acute) Following childbirth. Hx of cholecystectomy (Chronic) Hx of colonoscopy (Chronic) S/P fine needle biopsy (Acute) Per pt fine needle biopsy for throat nodules. Social History Smoking/Tobacco Use Status: Former Tobacco Use Drug use: Never Current gender identity: female
--- NOTE | 2019-01-05 08:44 | PT.INTREAT ---
Date of service: 01/05/19 Time of Service: 08:45 PT Notes Inpatient Physical Therapy Treatment Note [facility] Date: 01/05/2019 PRECAUTIONS: Fall, WBAT B SUBJECTIVE: Lis reports that she is feeling much better today. She states that she's feeling stiff, but is agreeable to participating in PT. OBJECTIVE: PAIN: Patient complained of knee pain L>R, bilaterally with ther ex BED MOBILITY/TRANSFERS Sit-stand: S Stand-sit: S GAIT Assistive Device: FWW Weight bearing: WBAT B Assist: S Distance: 100' x2 Deviation: Seated rest x1, cueing continuous FWW advancement THEREX: Patient completed a lower extremity strengthening program, in a seated position, as per flow sheet. She ends with cryocuff to bilateral knees. STAIRS: Up/down 3x4 and 2x6 using B rails and a step-to pattern with SBA ASSESSMENT: Patient tolerated session with complaints of increased bilateral knee discomfort, L>R. Patient was able to tolerate a progression in gait distance with FWW support and supervision. Patient would benefit from continued gait and transfer training as well as strengthening for improved mobility and improved activity tolerance. PLAN: As per primary PT TREATMENT CODE/TIME: 35 minutes; [id number], [id number]
[2019-01-05 09:24] VITALS: O2SAT 98
--- NOTE | 2019-01-05 13:23 | CMDISCH_ITS ---
LACE Index Scoring Tool - Questions: Length of Stay (in days): 2 Acuity (Admit via E.D.?): No E.D. Visits: 0 - Answers: Total Score: 2 Risk of Readmission: Low Risk Care Management Discharge Reason for Hospitalization: Bilateral Knee OA Discharge Plan: Lis will return home with new home health orders for PT/OT through [facility] (CM notified and faxed orders) and follow up with Dr. Castanon. CM coordinated new FWW through [facility] at Lis's request. She will transport via private vehicle with her , Luis. Patient/Family Education Needs: Review of discharge instructions, DME options and insurance limitations, discuss Ask Me Three. Services Needed at Discharge: DME Agency ([facility]), Home Health Care Services ([facility]: PT/OT)
--- NOTE | 2019-01-05 17:41 | INDS_ITS ---
Date of service: 01/05/19 Time of Service: 17:41 PT Notes Inpatient Physical Therapy Discharge Summary Dates: 01/05/2019 Dates of Service: 01/03/2019 through 01/05/2019 This is a clinical summary of care provided on the duration of dates listed above. No charge was made in the completion of this documentation. Referring Doctor: Jacek Castanon MD PT Orders: PT CONSULT: S/P B TKA Precautions: Fall. Standard. WBAT on B LE. Patient Profile/Admitting Diagnosis: Patient is a 58-year-old female patient with bilateral knee osteoarthritis S/P bilateral total knee arthroplasty on POD 2. PMHX: Medical History Multiple thyroid nodules (Acute) Surgical History History of gynecologic surgery (Acute) Following childbirth Hx of cholecystectomy (Chronic) Hx of colonoscopy (Chronic) S/P fine needle biopsy (Acute) Per pt fine needle biopsy for throat nodules. Social History/Home Situation: Lives with in a log cabin with 1 step to enter with rail on the R going up. I with all aspects of ADLs prior to surgery. [place] Equipment Owned/DME: None. Subjective: NT Objective: General Observation: NT Mental Status: NT Pain:NT ROM: Right Upper Extremity: Shoulder Flexion WFL. Shoulder abduction WFL. Elbow flexion WFL. Wrist flexion WFL. Opening and closing of hand WFL. Left Upper Extremity: Shoulder Flexion WFL. Shoulder abduction WFL. Elbow flexion WFL. Wrist flexion WFL. Opening and closing of hand WFL. Right Lower Extremity: Hip flexion WFL. Hip abduction WFL. Knee flexion 0-90 degrees with active ROM limited by TAMIR wraps. Knee extension -18 degrees. Ankle dorsiflexion WFL. Ankle plantarflexion WFL. Left Lower Extremity: Hip flexion WFL. Hip abduction WFL. Knee flexion WFL 0-100 degrees with active ROM limited by TAMIR wraps. Knee extension -21 degrees. Ankle dorsiflexion WFL. Ankle plantarflexion WFL. Strength: Right Upper Extremity: Shoulder flexors 5/5. Shoulder abductors 5/5. Elbow flexors 5/5. Elbow extensors 5/5. Flight/Transport Nurse strong. Left Upper Extremity: Shoulder flexors 5/5. Shoulder abductors 5/5. Elbow flexors 5/5. Elbow extensors 5/5. Flight/Transport Nurse strong. Right Lower Extremity: Hip flexors 4/5. Hip abductors 4/5. Knee flexors 3-/5. Knee extensors 3-/5. Ankle dorsiflexors 5/5. Ankle plantarflexors 5/5. Left Lower Extremity:Hip flexors 4/5. Hip abductors 4/5. Knee flexors 3-/5. Knee extensors 3-/5. Ankle dorsiflexors 5/5. Ankle plantarflexors 5/5. Sensation: Diminished on B feet as to pain and pressure on bilateral lower extremities due to post-anesthesia effect. This is Bed Mobility/Transfers: Rolling independent Supine to sit independent Sit to supine independent Sit to stand minimal assist Stand to sit independent Bed to chair supervision Chair to bed supervision Gait: Patient was able to tolerate 10 feet forward and 100 feet x 2 feet level surface ambulation using FWW with supervision showing slowed adri, decreased step height/length but without complaints of dizziness, headache, nor nausea. Patient did not report any instability on B knees during activity. B LE in good alignment during walking. Patient also tolerated up-and-down three 4 inch steps and two 6 inch steps while holding onto bilateral rails using step to gait pattern with SBA. Balance: Static Sitting: Normal Dynamic Sitting: Normal Static Standing: Fair Dynamic Standing: Fair Assessment: Patient is a 58-year-old female patient with bilateral knee osteoarthritis S/P bilateral total knee arthroplasty on POD 2. 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 She has a good prognosis for regaining prior level of function. is a very good support for her. Felisa is alos motivated to return to her prior mobility level. Patient continues to present with clinical signs and symptoms consistent with current/admitting diagnoses that have resulted to mobility limitations, gait instability, generalized weakness, and impairment of motor control as demonstrated by the following impairment level findings: 1. Decreased strength to knee major muscle groups 2. Impaired standing balance 3. Impaired activity tolerance 4. Limitation of joint range of motion in B knees Impairments continue to contribute to the following functional limitations: 1. Inability to safely ambulate without assistive device and physical assistance 2. Increase completion time for mobility ADL performance 3. Increased fall risk 4. Inability to negotiate steps alone safely Goals: Goals X1 week 1. Supine-Sit independent MET 2. Sit-Supine independent MET 3. Sit-Stand independent NOT MET 4. Stand-Sit independent NOT MET 5. Bed-Chair independent NOT MET 6. Chair-Bed independent NOT MET 7. Independent gait on level surface with use of least restrictive device for at least 300 feet without report of pain nor dyspnea NOT MET 8. Independent stair negotiation while holding onto bilateral rails for at least 3 steps without report of pain nor dyspnea NOT MET 9. Independent with home exercise program NOT MET 10. Good static and dynamic standing balance/tolerance NOT MET DISCHARGE RECOMMENDATIONS: May benefit from skilled physical therapy services according to orthopedic surgeon's timeline recommendations. Patient will be educated and trained on home exercise program per TKA exercise protocol in preparation for outpatient physical therapy services. TREATMENT CODE/TIME: CT. Thank you very much for this referral. Evon Pal PT, DPT, CLT [facility]
== END 2019-01-05 13:49 | disposition home health service (06) | DRG 462 ==
LOC: PDS 05:51 → MS 11:57
PROVIDERS: Admitting Provider Student in an Organized Health Care Education/Training Program; PCP Family Medicine; Visit Provider Student in an Organized Health Care Education/Training Program
PROC: 0SRD0J9 Replacement of Left Knee Joint with Synthetic Substitute, Cemented, Open Approach (ICD-10-PCS; CPT 27447; principal; 2019-01-03 07:30)
DX: M17.0 Bilateral primary osteoarthritis of knee (principal); Z96.653 Presence of artificial knee joint, bilateral
CPT/HCPCS: 27447; 36415; 76942; 80048; 85027; 97110; 97162; 97530; NC; J0690; J1885; J2250; J2405; J8540

== ENCOUNTER 2019-01-19 10:23 | Outpatient (CLI) | payer MEDICAID, SELFPAY ==
--- NOTE | 2019-01-19 10:53 | DI.RAD_ITS ---
EXAM: XR STANDING ALIGNMENT INDICATION: 1ST POST OP. COMPARISON: XR STANDING ALIGNMENT from 11/28/2018 standing AP views were performed from above the pe lvis through the ankles. TECHNIQUE: 2D digital imaging was performed. FINDINGS: The patient is status post bilateral total knee prostheses. The hip joint spaces are well maintaine d. There is no significant leg length discrepancy at the level of the femoral heads or iliac crests. There are degenerative changes at both medial ankles. IMPRESSION: Bilateral knee prostheses. No significant leg length discrepancy.
--- NOTE | 2019-01-19 10:57 | DI.RAD_ITS ---
EXAM: XR KNEE RT 1V and XR KNEE LT 1 V INDICATION: 1ST POST OP. COMPARISON: XR KNEE LT 2V AP,LAT from 11/28/2018 XR STANDING ALIGNMENT from 01/19/2019 XR KNEE LT 1V from 01/19/2019 TECHNIQUE: 2D digital imaging was performed. FINDINGS: Patient is status post bilateral total knee prostheses. The components appear well aligned. Mild s oft tissue swelling remains present.
== END 2019-01-19 10:43 ==
PROVIDERS: PCP Family Medicine; Visit Provider Student in an Organized Health Care Education/Training Program
DX: Z96.653 Presence of artificial knee joint, bilateral (principal); Z47.1 Aftercare following joint replacement surgery; M79.89 Other specified soft tissue disorders
CPT/HCPCS: 73560; 77073

== ENCOUNTER 2019-02-21 10:19 | Day surgery (SDC) | payer MEDICAID, SELFPAY ==
[2019-02-21] VITALS (9 sets, daily range): BP systolic 118–168; BP diastolic 68–99; PULSE 68–90; RESP 12–20; TEMP 36.2–36.7; O2SAT 94–100
[2019-02-21] MEDS: Lactated Ringers 1,000 ML 80 ML IV (11:06)
--- NOTE | 2019-02-21 12:19 | PDOC.DSDIS_ITS ---
Discharge Plan Disposition Patient Disposition: HOME Condition: Good Discharge Details Reason For Visit: BILAT KNEE MANIPULATION Attending Provider: Jacek Castanon Primary Care Provider: Jen Casillas Home Meds and New Rx's Prescriptions: Continued acetaminophen 500 mg tablet 1,000 mg PO Q8H PRN (Reason: pain) Qty: 90 RF: 3 meloxicam 7.5 mg tablet,disintegrating 7.5 mg PO DAILY Qty: 60 RF: 1 Changed tramadol 50 mg tablet 50 mg PO Q6H PRN PRN (Reason: pain) Qty: 15 RF: 0 No Action albuterol sulfate [Ventolin HFA] 8 GM HFA aerosol inhaler 2 puff inhalation DIRECTED PRNRF: 0 pantoprazole 40 mg tablet,delayed release (DR/EC) 40 mg PO HS RF: 0 Discharge Instructions Additional Instructions: Activity: You should begin moving as soon as possible. You may work on flexion but also equally maintain extension. You may bear weight as tolerated, using crutches/walker only for support/comfort. You should apply ice to help with swelling and elevate when possible (especially in the first few days). Dressings: The knee dressing may come down after 48 hours. You may shower and get the wound wet at that time. You should keep the wounds covered with a bandaid until follow-up. Medications: - Rarely does this require any stronger pain medications, but take Tramadol for breakthrough pain to allow work of range of motion at home and with PT. - Recommend to take up to 1000mg of Acetaminophen (Tylenol) every 8 hours as needed and 7.5mg of Meloxicam twice a day. These larger strength tablets were called in but you also may use [id number]. Follow-up: You will start PT tomorrow. Follow-up with Dr. Castanon in 7-10 days Referrals: Jacek Castanon MD [ [facility] STAFF PHYSICIAN] - Remove Dressings/Wound Care:: 24 hours Shower/Bathe:: 24 hours Diet:: As Tolerated Discharge Orders Discharge Orders: Discharge Order (Routine); Ordered 02/21/19 Ordered By: Jacek Castanon DS: Diagnosis Discharge Diagnosis (1) Arthrofibrosis of total knee arthroplasty: Status: Acute
[2019-02-21] MEDS: Bupivacaine 0.5% Pres-Free 30 ML VIAL (12:30)
[2019-02-21] MEDS: Normal Saline Flush 10 ML SYR IV (13:10)
[2019-02-21] MEDS: HYDROmorphone 2 MG/ML VIAL IVP (13:10)
--- NOTE | 2019-02-22 07:32 | W.PM.OP ---
Date of service: 02/21/19 Time of Service: 13:32 Operative Note Operative Note DATE OF PROCEDURE: 02/21/19 PRE-OP DIAGNOSIS: Bilateral bilateral knee arthrofibrosis status post replacement POST-OP DIAGNOSIS: same PROCEDURE: Bilateral knee manipulation Under Anesthesia with Intraarticular Injection SURGEON: Jacek Castanon ANESTHESIA: PJ ESTIMATED BLOOD LOSS: 0 PATHOLOGY: none sent COMPLICATIONS: None Patient was transported to: PACU Patient's condition: stable Indications: Lis is a 58 year old female with arthrofibrosis of bilateral knees. She underwent bilateral knee replacements a little over 6 weeks ago. She has been working with physical therapy but has struggled with regaining any of her motion and had notable loss of flexion. Given her minimal improvements over the last few weeks, I offered manipulation. I discussed the risk of the procedure to include recurrence, stiffness, weakness, tendon rupture, fracture. Despite these risks, the patient elects to proceed. Findings: PREOP FLEXION: Right = 80, Left = 75 POSTOP FLEXION: Right = 130, Left = 125 Procedure Description: Lis was greeted in the preoperative holding area. Consent was reviewed with the patient and signed. History physical was updated. Correct site was marked. Patient was then transferred back to the operative suite. The correct site was identified and a timeout was performed for safety and per hospital protocol. A general anesthetic was administered. Intra-articular injection of the both knees was performed using an anterolateral approach, prepping the skin with ChloraPrep and using sterile technique. I was able to inject 10 cc of 0.5% bupivacaine without difficulty. A Band-Aid was applied. Preoperative range of motion was checked and is noted in the above findings section. A muscle relaxant was then administered and the manipulation was then performed in standard protocol focusing on gentle, progressive flexion. There was notable auditory adhesio lysis. Some gentle pressure was applied in extension as well but was without any significant improvements. This was repeated for each knee. Postmanipulation flexion was improved to nearly 130 degrees bilaterally. Lis tolerated procedure well and was transferred back to the PACU in stable condition. She did have some pain in the PACU but did not show any signs of complication such as fracture or tendon rupture. Physical therapy will begin immediately starting tomorrow in the outpatient setting and with home-based exercises starting today.
== END 2019-02-21 15:48 | disposition home or self-care (01) ==
PROVIDERS: PCP Family Medicine; Visit Provider Student in an Organized Health Care Education/Training Program
PROC: (CPT 27570; principal; 2019-02-21 13:15)
DX: T84.82XA Fibrosis due to internal orthopedic prosthetic devices, implants and grafts, initial encounter (principal); Z96.653 Presence of artificial knee joint, bilateral
CPT/HCPCS: 27570; 20610 ×2

== ENCOUNTER 2019-04-04 07:32 | Day surgery (SDC) | payer MEDICAID, SELFPAY ==
[2019-04-04 07:40] VITALS: BP 140/91; PULSE 86; RESP 18; TEMP 36.3; O2SAT 98
--- NOTE | 2019-04-04 08:12 | W.PM.HP.N ---
Date of service: 04/04/19 Time of Service: 08:12 Assessment and Plan Assessment and plan (1) Anal fissure: Status: Acute Assessment and plan: Her symptoms and exam are typical for an anal fissure. She had not had any improvement with a week and a half of topical nifedipine and lidocaine. We discussed the options of continued medical treatment or anal exam under anesthesia with possible treatment of the fissure. She is in pain daily and would like to proceed with surgery. If a fissure is present, lateral internal sphincterotomy will be done. The risks of infection, bleeding, recurrence and 5% risk of gas/stool incontinence discussed. Internal hemorrhoid banding can also be done if indicated. The risks of bleeding and recurrence discussed. She agrees to proceed. History of Present Illness Narrative: Had bilateral knee replacement in December. Has had hemorrhoids since childbirth but worsened recently. No prior surgery/procedures. Pain is worse with BM and for hours after. Is doing sitz baths and warm compresses. Has used Prep H and TUCKS without success. Small amount of bleeding with a BM on the toilet paper. Is having 1-2 stools/day, soft, on a stool softener. Is using pain meds prior to PT, about 2/day Colonoscopy done last July showed hemorrhoids. Review of Systems All systems reviewed & are unremarkable except as noted in HPI and below PFSH Medical History Acute meniscal tear, medial (Inactive 12/26/12) Multiple thyroid nodules (Acute) Rectal pain (Acute) Surgical History Arthrofibrosis of total knee arthroplasty (Acute 02/21/19) Bilateral S/P manipulation under anesthesia with intra-articular injection on 02/21/2019 History of gynecologic surgery (Acute) Following childbirth. Hx of cholecystectomy (Chronic) Hx of colonoscopy (Chronic) S/P fine needle biopsy (Acute) Per pt fine needle biopsy for throat nodules. S/P surgical manipulation of knee joint (Acute) bilat Status post total bilateral knee replacement (Acute 01/03/19) Dr. Castanon Social History Smoking/Tobacco Use Status: Former Tobacco Use Quit Date: 02/15/89 Alcohol Intake: current Alcohol Intake frequency: a few times a week Alcohol type: wine Drug use: Never Substance use type: does not use Details: uses CBD oil on legs. Pt reports no ETOH since December. Current gender identity: female Do you feel safe at home: Yes Do you feel safe in your relationship?: Yes Meds Home Medications and Allergies Home Medications Medication Instructions Recorded Confirmed Type albuterol sulfate [Ventolin HFA] 2 puff INHALATION DIRECTED PRN 11/30/12 04/04/19 History acetaminophen 500 mg tablet 1,000 mg PO Q8H PRN #90 tab 03/03/19 04/04/19 Rx hydrocortisone 2.5 % topical cream 1 applic KS QD-BID PRN 03/22/19 04/04/19 History with perineal applicator cyclobenzaprine 5 mg tablet 5 mg PO TID PRN #18 tab 03/27/19 04/04/19 Rx hydrocodone 7.5 mg-acetaminophen 1 tab PO Q8H PRN #21 tab MDD 22.5mg 03/27/19 04/04/19 Rx 325 mg tablet lidocaine HCl 2 % mucosal jelly in 1 applic TP BID-QID PRN #110 ml 03/28/19 04/04/19 Rx applicator Allergies Allergy/AdvReac Type Severity Reaction Status Date / Time lactose Allergy Mild Verified 04/04/19 07:50 dog dander Allergy Wheezing Verified 04/04/19 07:50 codeine AdvReac Severe stomach Verified 04/04/19 07:50 pain monosodium glutamate AdvReac Intermediate Other (See Verified 04/04/19 07:50 Comment) aspirin AdvReac Mild Nausea Unverified 04/04/19 07:50 oxycodone AdvReac Mild Nausea Unverified 04/04/19 07:50 Exam Const General: healthy appearing Nutritional Appearance: well nourished Orientation: oriented x3 HENMT Head: normal to inspection Eyes Sclera: sclerae normal Pupils: PERRL Neck Neck: no lymphadenopathy Resp Effort & Inspection: normal respiratory effort Auscultation: clear to auscultation bilaterally and no wheezes Cardio Rate: regular rate Rhythm: regular rhythm GI Inspection: non-distended Palpation: soft, no hepatosplenomegaly, no hernias and nontender Other: Perianal exam showed no fistula, abscess or thrombosed external hemorrhoids. Palpation reveals significant tenderness in the posterior midline Skin General skin exam: no rashes or lesions noted Neuro General: alert Cognition: normal cognition Extrem General: normal to inspection Psych Affect: normal affect Attitude: cooperative Results Last Vital Signs Temp 97.3 F L 04/04/19 07:40 Pulse 86 04/04/19 07:40 Resp 18 04/04/19 07:40 BP 140/91 H 04/04/19 07:40 Pulse Ox 98 04/04/19 07:40
[2019-04-04] MEDS: Lactated Ringers 1,000 ML 80 ML IV (08:38)
--- NOTE | 2019-04-04 08:51 | W.PM.DSUDISC ---
Discharge Plan Disposition Patient Disposition: HOME Condition: Good Discharge Details Reason For Visit: Anal fissure Attending Provider: Marsha Wharton Primary Care Provider: Jen Casillas Home Meds and New Rx's Prescriptions: Continued lidocaine HCl 2 % jelly in applicator 1 applic TP BID-QID PRN (Reason: pain) Qty: 110 RF: 1 acetaminophen 500 mg tablet 1,000 mg PO Q8H PRN (Reason: pain) Qty: 90 RF: 3 hydrocodone-acetaminophen 7.5-325 mg tablet 1 tab PO Q8H MDD 22.5mg PRN (Reason: pain) Qty: 21 RF: 0 cyclobenzaprine 5 mg tablet 5 mg PO TID PRN (Reason: muscle spasm) Qty: 18 RF: 0 albuterol sulfate [Ventolin HFA] 8 GM HFA aerosol inhaler 2 puff inhalation DIRECTED PRNRF: 0 Discontinued hydrocortisone [Proctozone-HC] 2.5 % cream with perineal applicator 1 applic MO QD-BID PRNRF: 0 Discharge Instructions Additional Instructions: An anal fissure was present. Anal spincterotomy was performed. There is a small incision that was closed with dissolvable suture. A small amount of bleeding is possible. Wear a pad in the underwear as needed. Continue sitz baths twice a day and as needed. Call for any concerns including fever, increased pain, bleeding or drainage. Do not lift more than 15 pounds for two weeks. Walking and stairs are fine. Do not drive if on narcotic pain meds or if limited by pain. May use Tylenol alternating with ibuprofen for pain control. Ice is also an option. The maximum dose for Tylenol is 4000 mg/day. May use ibuprofen 800 mg every 8 hours as needed. If concerned about constipation, you may use a stool softener or milk of magnesia. Referrals: Marsha Wharton MD [ [facility] STAFF PHYSICIAN] - (Return next week for postop visit) Activity:: Do not lift more than 15# for two weeks Shower/Bathe:: 24 hours Diet:: As Tolerated Discharge Orders Discharge Orders: Discharge Order (Routine); Ordered 04/04/19 Ordered By: Marsha Wharton DS: Diagnosis Discharge Diagnosis (1) Anal fissure: Status: Acute
[2019-04-04] MEDS: Bupivacaine 0.5% Pres-Free 30 ML VIAL (09:36)
[2019-04-04] MEDS: Bupivacaine LIPOSOME/PF 133 MG/10 ML VIAL IJ (09:36)
[2019-04-04 10:26] VITALS: BP 125/84; PULSE 72; RESP 17; TEMP 36.1; O2SAT 99
--- NOTE | 2019-04-04 10:54 | ROE_ITS ---
DATE OF PROCEDURE: April 04, 2019 PREOPERATIVE DIAGNOSIS: Anal fissure. POSTOPERATIVE DIAGNOSIS: Same. PROCEDURE: Left lateral internal sphincterotomy. SURGEON: Marsha Wharton M.D. ANESTHESIA: Spinal, sedation and local. INDICATIONS: This is a 58-year-old woman who presented with severe perianal pain, worse after a balta l movement. On examination in the office she had some non-thrombosed external hemorrhoids and signif icant tenderness to palpation in the posterior midline, most consistent with an anal fissure. Her sy mptoms did not improve with sitz baths and topical nifedipine. PROCEDURE: The patient was taken to the operating room and had placement of a spinal anesthetic. Sh e was then carefully positioned in the prone position. Tape was applied to the gluteal region for be tter exposure. The perianal region was prepped with Betadine and draped sterilely. Inspection revea led no evidence of thrombosed external hemorrhoid, fistula or abscess. Digital rectal examination re vealed no masses. The anoscope was inserted and the Betadine prep used internally. The patient had an obvious deep posterior midline fissure. This had a small amount of bleeding present after the dig ital examination. I therefore proceeded with the left lateral internal sphincterotomy, as discussed preoperatively. The mucosa overlying the sphincters was divided with knife and a hemostat used to el evate the hemorrhoidal tissue off of the sphincteric complex. The hemostat was used to separate the internal and external sphincters and then Metzenbaum scissors used to divide the internal sphincter a pproximately half way up to the dentate line. Gentle pressure was applied to the remaining fibers to relax these partially. There was good hemostasis so the incision was closed with a #4-0 Monocryl hinojosa bcuticular stitch. Exparel and 0.5% Marcaine were injected into the surgical site and fissure for po stoperative pain control. She tolerated the procedure well and was stable to recovery. cc: Jen Casillas M.D.
== END 2019-04-04 11:12 | disposition home or self-care (01) ==
PROVIDERS: PCP Family Medicine; Visit Provider Surgery
PROC: (CPT 46080; principal; 2019-04-04 08:45)
PROC: (CPT 46080; 2019-04-04 08:45)
DX: K60.1 Chronic anal fissure (principal)
CPT/HCPCS: 46080; NC; J2001; J2250; J2405

== ENCOUNTER 2020-02-05 11:23 | Outpatient (CLI) | payer MEDICAID, SELFPAY ==
--- NOTE | 2020-02-05 10:30 | DI.RAD_ITS ---
EXAM: XR KNEE LT 2V AP,LAT CLINICAL HISTORY: TKA. TECHNIQUE: 2D digital imaging was performed. COMPARISON: CR XR STANDING ALIGNMENT from 01/19/2019 CR XR KNEE LT 1V from 01/19/2019 CR XR KNEE RT 2V AP,LAT from 02/05/2020 FINDINGS: BONES: There are stable post operative changes present. No fracture or dislocation. JOINTS: The joint spaces are well maintained. No joint effusion is present. SOFT TISSUE: Normal. IMPRESSION: Stable postoperative changes. DATA REPOSITORY: RADIATION DOSE DELIVERED:
--- NOTE | 2020-02-05 10:30 | DI.RAD_ITS ---
EXAM: XR KNEE RT 2V AP,LAT CLINICAL HISTORY: TKA. TECHNIQUE: 2D digital imaging was performed. COMPARISON: No exams were available for comparison FINDINGS: BONES: There are stable post operative changes present. No fracture or dislocation. JOINTS: The joint spaces are well maintained. There is a small joint effusion. SOFT TISSUE: Normal. IMPRESSION: Stable postoperative changes. Small joint effusion. DATA REPOSITORY: RADIATION DOSE DELIVERED:
== END 2020-02-05 11:43 ==
PROVIDERS: PCP Family Medicine; Visit Provider Physician Assistant
DX: Z96.653 Presence of artificial knee joint, bilateral (principal)
CPT/HCPCS: 73560

== ENCOUNTER 2020-03-08 02:20 | Outpatient (CLI) | payer MEDICAID, SELFPAY ==
[2020-03-09 16:58] LABS: COVID-19 RT-PCR Result NEGATIVE (Negative)
== END 2020-03-08 02:40 ==
PROVIDERS: PCP Family Medicine; Visit Provider Student in an Organized Health Care Education/Training Program
DX: Z11.52 Encounter for screening for COVID-19 (principal); Z01.818 Encounter for other preprocedural examination
CPT/HCPCS: U0003

== ENCOUNTER 2020-03-12 06:13 | Day surgery (SDC) | payer MEDICAID, SELFPAY ==
[2020-03-12 06:21] VITALS: BP 156/89; PULSE 70; RESP 16; TEMP 36.5; O2SAT 97
--- NOTE | 2020-03-12 07:08 | W.PREOPHP ---
Date of service: 03/12/20 Time of Service: 07:08 Assessment and Plan Assessment and plan (1) Arthrofibrosis of total knee arthroplasty: Status: Acute Assessment and plan: Lis is a 59-year-old who is status post bilateral knee arthroplasties with arthrofibrosis. She has restricted range of motion which did improve initially after manipulation but due to social constraints from the pandemic, she was unable to work on the motion very diligently afterwards. In order to gain better motion I offered arthroscopic synovectomy with manipulation. She will need physical therapy daily afterwards which has been arranged. I discussed the surgery in detail with her in the office. I once again reviewed that again today. I discussed the risk of the procedure to include bleeding, infection, pain, continued stiffness, fracture, blood clot. Despite these risks, she elects to proceed. Qualifiers: Encounter type: subsequent encounter Qualified Code(s): T84.82XD - Fibrosis due to internal orthopedic prosthetic devices, implants and grafts, subsequent encounter History of Present Illness Narrative: Lis is a 59-year-old who I had previously performed bilateral knee replacements. She did well afterwards but started with motion. She did undergo manipulation under anesthesia which helped initially. She went to [place] but unfortunate was quarantined to a [facility] [place] for greater than 4 months. During that time she lost most of her gains with motion. She now has decent function with ambulation but has significant struggles with range of motion. She feels there is a hard block to her motion and causes pain. She was seen in the office on February 04 where I discussed treatment options with her. Given her significant restriction of motion I did offer arthroscopic synovectomy and manipulation bilaterally. Review of Systems All systems reviewed & are unremarkable except as noted in HPI and below PFSH Medical History Acute meniscal tear, medial (12/26/12) Multiple thyroid nodules Rectal pain Surgical History Arthrofibrosis of total knee arthroplasty (02/21/19) Bilateral S/P manipulation under anesthesia with intra-articular injection on 02/21/2019 History of gynecologic surgery Following childbirth. Hx of cholecystectomy Hx of colonoscopy S/P fine needle biopsy Per pt fine needle biopsy for throat nodules. S/P surgical manipulation of knee joint bilat Status post total bilateral knee replacement (01/03/19) Dr. Castanon Social History Smoking/Tobacco Use Status: Former Tobacco Use Quit Date: 02/15/89 Smoking risk assessment performed?: Yes Alcohol Intake: current Alcohol Intake frequency: a few times a week Alcohol type: wine Drug use: Never Substance use type: does not use Details: uses CBD oil on legs. Pt reports no ETOH since December. Current gender identity: female Do you feel safe at home: Yes Do you feel safe in your relationship?: Yes Meds Home Medications and Allergies Home Medications Medication Instructions Recorded Confirmed Type albuterol sulfate [Ventolin HFA] 2 puff INHALATION DIRECTED PRN 11/30/12 03/08/20 History acetaminophen 500 mg tablet 1,000 mg PO Q8H PRN #90 tab 03/03/19 03/08/20 Rx Allergies Allergy/AdvReac Type Severity Reaction Status Date / Time lactose Allergy Mild Verified 03/12/20 06:20 dog dander Allergy Wheezing Verified 03/12/20 06:20 codeine AdvReac Severe stomach Verified 03/12/20 06:20 pain monosodium glutamate AdvReac Intermediate Other (See Verified 03/12/20 06:20 Comment) aspirin AdvReac Mild Nausea Verified 03/12/20 06:20 oxycodone AdvReac Mild Nausea Verified 03/12/20 06:20 Exam Const General: cooperative, healthy appearing and comfortable Resp Auscultation: clear to auscultation bilaterally Cardio Rate: regular rate Rhythm: regular rhythm Results Last Vital Signs Temp 36.5 C 03/12/20 06:21 Pulse 70 03/12/20 06:21 Resp 16 03/12/20 06:21 BP 156/89 H 03/12/20 06:21 Pulse Ox 97 03/12/20 06:21
[2020-03-12] MEDS: Lactated Ringers 1,000 ML 80 ML IV (07:16)
--- NOTE | 2020-03-12 07:22 | PDOC.DSDIS_ITS ---
Discharge Plan Disposition Patient Disposition: HOME Condition: Good Discharge Details Reason For Visit: Bilateral TKA Arthrofibrosis Attending Provider: Jacek Castanon Primary Care Provider: Jen Casillas Home Meds and New Rx's Prescriptions: New ibuprofen 600 mg tablet 600 mg PO TID PRN (Reason: pain) Qty: 90 RF: 3 tramadol 50 mg tablet 50 mg PO Q6H PRNQty: 12 RF: 0 acetaminophen 500 mg tablet 1,000 mg PO Q8H PRN (Reason: pain) Qty: 90 RF: 3 Discontinued acetaminophen 500 mg tablet 1,000 mg PO Q8H PRN (Reason: pain) Qty: 90 RF: 3 albuterol sulfate [Ventolin HFA] 8 GM HFA aerosol inhaler 2 puff inhalation DIRECTED PRNRF: 0 Discharge Instructions Additional Instructions: Activity: You should begin moving as soon as possible. You may work on flexion but also equally maintain extension. You may bear weight as tolerated, using crutches/walker only for support/comfort. You should apply ice to help with swelling and elevate when possible (especially in the first few days). Dressings: The knee dressing may come down after 48 hours. You may shower and get the wound wet at that time. You should keep the wounds covered with a bandaid until follow-up. Medications: - Rarely does this require any stronger pain medications. You have been prescribed Tramadol as needed. - Recommend to take up to 1000mg of Acetaminophen (Tylenol) and 600mg of Ibuprofen (Advil) every 8 hours as needed. These larger strength tablets were called in but you also may use [id number]. Follow-up: You will begin PT immediately. You should follow-up with Dr. Castanon in approximately 10 days Referrals: Jacek Castanon MD [ [facility] STAFF PHYSICIAN] - Activity:: Activity as Tolerated Remove Dressings/Wound Care:: 48 hours Shower/Bathe:: 48 hours Diet:: As Tolerated Discharge Orders Discharge Orders: Discharge Order (Routine); Ordered 03/12/20 Ordered By: Jacek Castanon DS: Diagnosis Discharge Diagnosis (1) Arthrofibrosis of total knee arthroplasty: Status: Acute
[2020-03-12] MEDS: ceFAZolin 2 GM/50 ML BAG IVPB (07:29)
[2020-03-12] MEDS: Bupivacaine 0.5% Pres-Free 30 ML VIAL ×2 (08:28→08:29)
[2020-03-12 08:40] VITALS: BP 95/54; PULSE 69; RESP 18; TEMP 36.5; O2SAT 96
[2020-03-12 08:45] VITALS: BP 83/52; PULSE 71; RESP 21; TEMP 36.5; O2SAT 97
[2020-03-12 08:50] VITALS: BP 90/60; PULSE 69; RESP 19; TEMP 36.5; O2SAT 97
[2020-03-12 09:05] VITALS: BP 108/62; PULSE 67; RESP 18; TEMP 36.5; O2SAT 97
[2020-03-12 09:52] VITALS: BP 115/73; PULSE 61; RESP 16; TEMP 36.3; O2SAT 98
--- NOTE | 2020-03-12 15:23 | W.PM.OP ---
Date of service: 03/12/20 Time of Service: 08:43 Operative Note Operative Note DATE OF PROCEDURE: 03/12/20 PRE-OP DIAGNOSIS: Bilateral Knee Arthrofibrosis s/p TKA POST-OP DIAGNOSIS: same PROCEDURE: Bilateral Knee Arthroscopic Synvectomy of 3 compartments and Manipulation Under Anesthesia SURGEON: Jacek Castanon ANESTHESIA: GETA and spinal ESTIMATED BLOOD LOSS: 5 PATHOLOGY: none sent COMPLICATIONS: None Patient was transported to: PACU Patient's condition: stable Indications: I have seen Lis in clinic for symptoms of bilateral knee arthrofibrosis after TKA. She failed manipulation under anesthesia and PT and given her limited motion, I recommended arthroscopic synovectomy with manipulation. I reviewed the risks of the procedure to include, but not limited to, bleeding, infection, pain, stiffness, damage to nerves or vessels, recurrence, blood clot. Despite these risks, the patient elected to proceed. Findings: RIGHT KNEE: Preoperative ROM: 5-90 Postoperative ROM: 5-120 LEFT KNEE: Preoperative ROM: 8-80 Postoperative ROM: 8-115 Procedure Description: Lis was greeted in the preoperative holding area where the sides were identified and marked. The consent was reviewed with the patient and signed. The history and physical was updated. All questions were answered. Lis was taken back to the operating room. The patient was placed into the supine position on the operating room table. Prophylactic antibiotics in the form of Cefazolin were administered. Both legs were then prepped with Chloraprep and draped in a standard fashion with bilateral extremity drape. A timeout to confirm correct identity, side and site, procedure, allergies, anesthesia, and medical concerns was performed. Preoperative range of motion was evaluated and recorded. Starting with the right knee, a standard lateral portal was made at the lateral border of the patella tendon in line with the inferior pole of the patella, soft spot. The skin and deep tissue was incised sharply and the blunt trochar was inserted atraumatically. A diagnostic arthroscopy was performed and showed significant scarring between the lateral gutter and the suprapatellar spce. I then created a superolateral portal with needle localization. Electrocautery was then used to recreate the suprapatellar space. I resected scar tissue between the anterior surface of the femur and the underside of the extensor mechanism. She is taking all the way until muscle was visible. This is also worked medially and laterally. I also used a shaver to debride any remnant scar tissue seen after the release as well as around the patella. I then worked laterally to clear out the lateral gutter. A medial portal was made with spinal needle localization to complete synovectomy anteriorly as well as medially. Once this was completed, the manipulated the knee gaining nearly 120 degrees of flexion. The wounds were closed with 4-0 Nylon. Attention was then turned to the left knee. A lateral portal was made at the lateral border of the patella tendon in line with the inferior pole of the patella, soft spot. The skin and deep tissue was incised sharply and the blunt trochar was inserted atraumatically. A diagnostic arthroscopy was performed and showed significant scarring between the lateral gutter and the suprapatellar space, even more dense than the right side. I then created a superolateral portal with needle localization. Electrocautery was then used to recreate the suprapatellar space. I resected scar tissue between the anterior surface of the femur and the underside of the extensor mechanism. She is taking all the way until muscle was visible. This is also worked medially and laterally. I also used a shaver to debride any remnant scar tissue seen after the release as well as around the patella. I then worked laterally to clear out the lateral gutter. A medial portal was made with spinal needle localization to complete the synovectomy anteriorly as well as medially. Once this was completed, the manipulated the knee gaining nearly 115 degrees of flexion. The wounds were closed with 4-0 Nylon. The wounds of both knees were dressed with Xeroform, 4x4 gauze, ABD pad, Kerlix and an TAMIR wrap. The patient tolerated the procedure well and was returned to the Same Day Surgery area in a stable condition suffering no known complication.
== END 2020-03-12 11:50 | disposition home or self-care (01) ==
PROVIDERS: PCP Family Medicine; Visit Provider Student in an Organized Health Care Education/Training Program
PROC: (CPT 29870; principal; 2020-03-12 07:30)
DX: T84.82XA Fibrosis due to internal orthopedic prosthetic devices, implants and grafts, initial encounter (principal); Z96.653 Presence of artificial knee joint, bilateral; M24.662 Ankylosis, left knee; M24.661 Ankylosis, right knee; K21.9 Gastro-esophageal reflux disease without esophagitis
CPT/HCPCS: 29876; 27570; NC; J0690; J1885; J2001; J2250; J2405

== ENCOUNTER 2021-07-07 13:22 | Outpatient (CLI) | payer MEDICAID, SELFPAY ==
--- NOTE | 2021-07-07 13:00 | DI.RAD_ITS ---
Exam(s) XR KNEE LT 2V AP,LAT EXAM: XR KNEE LT 2V AP,LAT INDICATION: follow up. COMPARISON: CR XR KNEE LT 2V AP,LAT from 02/05/2020 CR XR KNEE RT 2V AP,LAT from 07/07/2021 TECHNIQUE: 2D digital imaging was performed. Two views. FINDINGS: There has been no change in the total knee prosthesis or appearance of the surrounding bone. DATA REPOSITORY: RADIATION DOSE DELIVERED:
--- NOTE | 2021-07-07 13:00 | DI.RAD_ITS ---
Exam(s) XR KNEE RT 2V AP,LAT EXAM: XR KNEE RT 2V AP,LAT INDICATION: follow up. COMPARISON: CR XR KNEE LT 2V AP,LAT from 02/05/2020 CR XR KNEE RT 2V AP,LAT from 02/05/2020 TECHNIQUE: 2D digital imaging was performed. Two views. FINDINGS: There has been no change in the total knee prosthesis or appearance of the surrounding bone. DATA REPOSITORY: RADIATION DOSE DELIVERED:
== END 2021-07-07 13:23 | disposition home or self-care (01) ==
LOC: DIORS 13:22
PROVIDERS: PCP Family Medicine; Referring Provider Family Medicine; Visit Provider Physician Assistant Surgical
DX: Z96.653 Presence of artificial knee joint, bilateral (principal); Z47.1 Aftercare following joint replacement surgery
CPT/HCPCS: 73560

== ENCOUNTER → 2021-07-15 01:47 | Outpatient (CLI) | payer MEDICAID, SELFPAY ==
--- NOTE | 2021-07-15 15:29 | DI.RAD_ITS ---
Exam(s) XR STERNUM EXAM: XR STERNUM CLINICAL HISTORY: SWELLING IN NECK, R22.1. TECHNIQUE: 2D digital imaging was performed. COMPARISON: CR XR CHEST 2V PA LATERAL from 12/09/2018 FINDINGS: 3 views No obvious fracture of the medial clavicle. Slight widening of the left AC joint. No obvious osseou s lesions. If clinically indicated follow-up CT or MRI can be performed given the symptoms here. IMPRESSION: DATA REPOSITORY: RADIATION DOSE DELIVERED:
== END ==
PROVIDERS: PCP Family Medicine; Visit Provider Family Medicine
DX: R22.1 Localized swelling, mass and lump, neck (principal); M25.812 Other specified joint disorders, left shoulder
CPT/HCPCS: 71120

== ENCOUNTER 2024-08-11 23:19 | Outpatient (REF) | payer MEDICARE, MEDICAID, SELFPAY ==
[2024-08-11 21:25] LABS: HCT 44.1 % (36.0-46.0); HGB 14.8 g/dL (11.2-15.7); MCH 28.2 pg (27.0-33.0); MCHC 33.6 % (32.0-36.0); MCV 84 fL (80-95); MPV 11.8 fL (8.0-11.0); Platelet Count 268 10^3/uL (130-400); RBC 5.25 10^6/uL (3.93-5.22); RDW 12.2 % (11.7-14.6); WBC 12.24 10^3/uL (4.4-10.8)
[2024-08-11 21:42] LABS: ALT 26 U/L (14-59); AST 10 U/L (15-37); Albumin 3.9 g/dL (3.4-5.0); Alkaline Phosphatase 199 U/L (46-116); Anion Gap 12.7 mmol/L (3-11); BUN 9 mg/dL (7-18); Bilirubin, Total 0.5 mg/dL (0.2-1.0); CO2 26.3 mmol/L (21.0-32.0); CREATININE 0.8 mg/dL (0.55-1.02); Calcium 9.3 mg/dL (8.5-10.1); Chloride 93 mmol/L (98-107); Estimated GFR 81.72 (mL/min/1.73m2); Potassium 4.3 mmol/L (3.5-5.1); Sodium 132 mmol/L (136-145); Total Protein 6.6 g/dL (6.4-8.2)
[2024-08-11 21:57] LABS: Hemoglobin A1C > 13.0 % (<5.7)
[2024-08-11 22:09] LABS: Glucose 661 mg/dL (74-106)
== END 2024-08-11 23:20 | disposition home or self-care (01) ==
LOC: NCHCN 23:19
PROVIDERS: PCP Family Medicine; Visit Provider Nurse Practitioner Family
DX: R73.09 Other abnormal glucose (principal)
CPT/HCPCS: 80053; 85027; 83036

== ENCOUNTER 2024-11-13 11:28 | Outpatient (REF) | payer MEDICARE, MEDICAID, SELFPAY ==
--- NOTE | 2024-11-13 10:30 | PAPFT_PTH ---
PATIENT: Lis Millan LOC: [facility]#:[id number] AGE/SX: 64/F ROOM: RE11/13/[address]: Jen Casillas : 1960 BED: DIS: 11/13/2024 SPEC #: [id number] RECD: 11/13/24 18:08 STATUS: CHOCO KRAUS #: [id number] DANGELO: 11/13/24 10:[address]: Jen Casillas DEPT: [facility] Cytology RECD BY: Mary Muñoz Tissues: 1 - CX/ENDOCX FOR PAP SMEARS Procedures: PAP THIN PREP/UVM Screening Comments: [id number]
== END 2024-11-13 11:29 | disposition home or self-care (01) ==
LOC: NCHCN 11:28
PROVIDERS: PCP Family Medicine; Visit Provider Family Medicine
DX: Z12.4 Encounter for screening for malignant neoplasm of cervix (principal); Z00.00 Encounter for general adult medical examination without abnormal findings
CPT/HCPCS: 88142

== ENCOUNTER 2024-11-21 01:31 | Outpatient (CLI) | payer MEDICARE, SELFPAY ==
--- NOTE | 2024-11-21 11:40 | DI.MAMMO_ITS ---
Exam(s) MAMMO SCREENING EXAM: MAMMO SCREENING CLINICAL HISTORY: SCREENING MAMMO Z00.00 ADULT MEDICAL EXAM TECHNIQUE: Bilateral full field digital CC and MLO mammographic images were obtained with 3D tomosynthesis and utilizing computer aided detection (CAD). COMPARISON: Comparison is made with prior examinations. FINDINGS: Masses/Architectural Distortion: No suspicious masses or areas of architectural distortion are present. Microcalcifications: No suspicious pleomorphic-type are seen. Skin Thickening/Nipple Retraction: None. IMPRESSION: 1. No significant interval change with no specific features of malignancy noted. 2. Unless there is more urgent need, screening mammography is recommended, as per [employer] guidelines. BI-RADS Category 1 - Negative Breast Density - Category B - There are scattered areas of fibroglandular density. Breast density Category C or D implies that the patient has dense breast tissue. Dense breast tissue can make it harder to find cancer on a mammogram. Dense breast tissue is also associated with an increased risk of breast cancer. This information about the result of the mammogram report was provided to the patient to raise their awareness. Use this report when you speak with the patient about their risks for breast cancer, which includes their family history. At that time, you may recommend additional screening tests (Ultrasound or MRI) as these tests may add significant information. A negative radiographic report should not delay biopsy if a dominant or clinically suspicious mass is present. Up to ten percent of cancers are not identified on mammography. A negative report may reinforce clinical impression. Adenosis and dense breasts may obscure an underlying neoplasm. False positive reports average 6 to 10%. Patient will receive a letter notifying them of these results.
== END 2024-11-21 01:51 ==
PROVIDERS: PCP Family Medicine; Visit Provider Family Medicine
DX: Z00.00 Encounter for general adult medical examination without abnormal findings (principal); Z12.31 Encounter for screening mammogram for malignant neoplasm of breast
CPT/HCPCS: 77063; 77067